=== PATIENT | female | born 1955 | race Caucasian/White ===

== ENCOUNTER 2022-03-30 14:17 | Inpatient (IN) | payer MEDICARE, OTHER, SELFPAY ==
--- NOTE | 2022-03-30 | ECG_ITS ---
Test Reason : CHEST PAIN Blood Pressure : / mmHG Vent. Rate : 118 BPM Atrial Rate : 118 BPM P-R Int : 118 ms QRS Dur : 080 ms QT Int : 326 ms P-R-T Axes : 087 077 054 degrees QTc Int : 456 ms Sinus tachycardia RSR' or QR pattern in V1 suggests right ventricular conduction delay Right axis deviation Borderline ECG No previous ECGs available Referred By: Generic ED Physician Electronically Signed By:SHARI VAZQUEZ MD
--- NOTE | ~2022-03-30 | XR_ITS ---
EXAMINATION: XR CHEST CLINICAL INFORMATION: Chest pain COMPARISON: None TECHNIQUE: Frontal view of the chest was obtained. FINDINGS: There is hyperaeration with extensive pleural and parenchymal scarring throughout. There are no prior chest radiographs for review, thus I suspect these findings are all chronic. A follow-up PA and lateral would be helpful. If symptoms continue high-resolution chest CT could be done. There is no pneumothorax. I do not see evidence for pleural effusion. Heart and pulmonary vessels are normal. No congestive change. XR/XR chest 1V IMPRESSION: Possible chronic changes. Follow-up with a PA and lateral film or high-resolution chest CT may be warranted.
[2022-03-30 14:28] VITALS: BP 160/98; PULSE 127; O2SAT 89
[2022-03-30 15:13] VITALS: BP 132/70; PULSE 102; RESP 26; TEMP 36.5; O2SAT 93; BMI 22.3
--- NOTE | 2022-03-30 16:00 | ED.SOB ---
HPI - SOB/Dyspnea General Chief Complaint: Dyspnea Stated Complaint: SOB 96% ON HOME O2 @ 3LPM FROM MD OFFICE Time Seen by Provider: 03/30/22 15:58 Source: patient Mode of arrival: ambulatory Limitations: no limitations History of Present Illness HPI Narrative: 56-year-old female history of asthma, COPD, breast cancer status post lumpectomy, lung cancer status post radiation presenting to the emergency department with shortness of breath times a week worsening. Patient reports that last week she felt like she had a cold with a dry cough, shortness of breath, malaise, fatigue subjective fevers and chills, today she comes in with significant shortness of breath, tells me she went to her PCP and was noted to be hypoxic at 89% on room air which deviates from patient's baseline, patient wears 2 L via nasal cannula at home. Patient reports she is having some substernal chest pressure without radiation. Denies fevers, chills, nausea, vomiting, abdominal pain, headache, vision changes in dizziness. Upon history taking patient speaking in short sentences, labored breathing is evident. Related Data Allergies Allergy/AdvReac Type Severity Reaction Status Date / Time Unable to Assess Allergy Unverified 03/30/22 15:59 Review of Systems Review of Systems: Constitutional : No Weight loss, No Fever, No Chills, No Fatigue, No Malaise ENT/Mouth : No sore throat, No Rhinorrhea Eyes: No Eye Pain, No Swelling, No Redness Cardiovascular : No Chest Pain, + SOB, No Dyspnea on Exertion, No Orthopnea, No Edema, No Palpitations Respiratory : + Cough, No Sputum, No Wheezing Gastrointestinal : No Nausea, No Vomiting, No Diarrhea, No Constipation, No abdominal Pain, No Hematochezia, No Melena Genitourinary : No Dysuria, No Urinary Frequency, No Hematuria, Musculoskeletal : No joint pain, No Myalgias, No Joint Swelling Skin : No Skin Lesions, No rash Neuro : No Weakness, No Numbness, No Dizziness, No Headache Psych : No Anxiety/Panic, No Depression All other systems reviewed and are negative Yes all other systems are reviewed and are negative [facility] Past Medical History Attestation statement: The following information was validated with the patient. Source: old records reviewed and nursing notes reviewed Social History Social History Advance Directives: No Advance Directives Information Provided: No Physical Exam Vital Signs: Vital Signs: Last Vital Signs Temp 97.9 F 03/30/22 17:33 Pulse 121 H 03/30/22 17:33 Resp 19 03/30/22 17:33 BP 122/80 03/30/22 17:33 Pulse Ox 98 03/30/22 17:33 O2 Del Method 03/30/22 17:33 O2 Flow Rate 6 03/30/22 17:33 BMI result Body Mass Index 22.3 Vital signs stable however patient noted to be slightly tachycardic and tachypneic. Appearance: Alert.? Oriented X3.? Moderate respiratory distress? Head: Normocephalic, atraumatic, no step-offs or deformities Eyes: Pupils equal, round and reactive to light.? CVS: Normal heart rate and rhythm.? Pulses normal.? Respiratory: Moderate respiratory distress.? Right lower lobe crackles and wheezing throughout. Abdomen: Soft and nontender.? Skin: Skin warm and dry.? Normal skin color.? Normal skin turgor.? Extremities: No lower extremity edema.? No calf ttp. 5/5 strength to bilateral upper and lower extremities Neuro: Oriented X 3.? No motor deficit.? No sensory deficit. CN 2-12 intact Course Reevaluation(s) Reevaluation #1: Patient's CBC with slight leukocytosis, chemistry with no acute electrolyte abnormalities requiring intervention, lactic acid negative. Troponin negative, EKG nonischemic unlikely ACS. D-dimer negative, unlikely PE. UA clean. Flu/COVID/RSV negative. Chest x-ray with no acute findings. Patient with slight improvement after albuterol and DuoNeb as well as Solu-Medrol and magnesium however still having diffuse wheezing, patient appears significantly better than she did upon arrival, no use of accessory muscles at this time. Currently saturating 98% on 6 L. Will give an additional DuoNeb . Plan is to admit patient to the hospital for upper respiratory infection, asthma, shortness of breath. At this time patient will be admitted to the hospital for further intervention and treatment Time: 19:13 Medications Administered Discontinued Medications Generic Name Dose Route Start Last Admin Trade Name Freq PRN Reason Stop Dose Admin Albuterol Sulfate 5 mg/ 7.5 mg 03/30/22 16:23 03/30/22 16:28 Albuterol Sulfate 2.5 mg INHALE 03/30/22 16:24 7.5 mg ONCE ONE Administration Albuterol/Ipratropium 3 ml 03/30/22 16:07 03/30/22 16:28 Albuterol/Iprat 2.5/0.5mg 3 Ml Ampul.Neb INHALE 03/30/22 16:08 3 ml ONCE ONE Administration Magnesium Sulfate 2 gm in 50 mls @ 25 mls/hr 03/30/22 16:05 03/30/22 18:25 Magnesium Sulfate/H2o IV 03/30/22 18:04 Infused ONCE ONE Infusion Methylprednisolone Sodium Succinate 125 mg 03/30/22 16:05 03/30/22 16:17 Methylprednisolone Sod Succ 125 Mg/2 Ml Vial IVPUSH 03/30/22 16:06 125 mg ONCE ONE Administration MDM - SOB/Dyspnea MDM Narrative Medical decision making narrative: 1600 58-year-old female presents with shortness of breath, started after an upper respiratory infection. Patient arrives in moderate respiratory distress, hypoxic. Upon physical examination patient noted to be speaking in short sentences with labored breathing and intercostal muscles used for breathing. Vital signs significant for tachypnea, hypoxia. Faint crackles noted to the right lower lobe as well as significant wheezing throughout. Regular rate and rhythm. Abdomen soft nontender nondistended. Neuro exam nonfocal. Concerns for possible pneumonia versus asthma exacerbation versus CHF versus PE based off patient's risks. Will obtain a cardiac workup to rule out ACS although unlikely. I do not suspect COPD exacerbation on this patient. More likely asthma. Plan at this time is labs, imaging, urine, blood cultures, lactic acid. Will administer magnesium and Solu-Medrol as well as a DuoNeb. I did call Respiratory to patient's bedside immediately upon evaluation. Medical Records Attestation: I reviewed the patient's medical records. Lab Data Attestation: I reviewed the patient's lab results. Result diagrams: 03/30/22 16:12 03/30/22 16:12 Labs: Lab Results 03/30/22 03/30/22 03/30/22 Range/Units 16:12 16:12 16:12 WBC 12.0 H (4.8-10.8) X10*3/uL RBC 5.30 (4.20-5.50) X10*6/uL Hgb 15.0 (12.0-16.0) g/dl Hct 44.9 (37.0-47.0) % MCV 84.7 (80.0-98.0) fL MCH 28.3 (27.0-33.0) pg MCHC 33.4 (31.0-35.0) g/dl RDW 12.8 (11.0-16.0) % Plt Count 301 (160-400) X10*3/uL MPV 10.8 (9.4-12.3) fL Immature Gran % (Auto) 0.3 (0.0-0.4) % Neut % (Auto) 68.4 (45-73) % Lymph % (Auto) 14.4 L (20-40) % [place] % (Auto) 7.1 (2-11) % Eos % (Auto) 8.9 H (0-4) % Baso % (Auto) 0.9 (0-2) % Lymph # (Auto) 1.7 (1.2-4.9) X10*3/uL [place] # (Auto) 0.9 (0.1-1.2) X10*3/uL Eos # (Auto) 1.1 H (0.0-0.4) X10*3/uL Baso # (Auto) 0.1 (0.0-0.2) X10*3/uL Abs Immat Gran (auto) 0.04 H (0.00-0.03) X10*3/uL Absolute Neuts (auto) 8.2 (2.0-8.3) x10*3/uL Absolute Nucleated RBC 0.000 (0.0-0.012) X10*3/uL Nucleated RBC % (auto) 0.0 (0.0-0.2) /100WBC D-Dimer High Sensitivty 213 NG/ML Sodium 142 (135-145) mmol/L Potassium 4.1 (3.3-5.1) mmol/L Chloride 105 (96-108) mmol/L Carbon Dioxide 27 (22-29) mmol/L Anion Gap 14 (12-20) BUN 7 L (9-16) mg/dL Creatinine 0.65 (0.5-1.4) mg/dL Estim Creat Clear Calc 71.5 Estimated GFR > 60 Random Glucose 108 (60-115) mg/dL Lactic Acid (0.5-2.0) mmol/L Calcium 10.1 (8.4-10.2) mg/dL Magnesium 2.1 (1.6-2.6) mg/dL Total Bilirubin 0.4 (0.0-1.0) mg/dL AST 16 (5-31) U/L ALT 11 (0-31) U/L Alkaline Phosphatase 71 (39-117) U/L Troponin I High Sens (<3.5-17.0) ng/L B-Natriuretic Peptide (<100) pg/mL Total Protein 6.7 (6.5-8.0) g/dL Albumin 4.1 (3.5-5.0) g/dL Urine Color Urine Appearance Urine pH (5.0-9.0) Ur Specific [place] (1.005-1.025) Urine Protein (Neg-Trace) mg/dL Urine Glucose (UA) (Negative) mg/dL Urine Ketones (Negative) mg/dL Urine Blood (Negative) Urine Nitrite (Negative) Ur Leukocyte Esterase (Negative) COVID-19 (KRISTINE) (Negative) COVID-19 Clin Com Influenza Type A (PCR) (Negative) Influenza Type B (PCR) (Negative) RSV RNA Qual (PCR) (Negative) SARS-CoV-2 RNA (RT-PCR) (Negative) 03/30/22 03/30/22 03/30/22 Range/Units 16:12 16:12 16:16 WBC (4.8-10.8) X10*3/uL RBC (4.20-5.50) X10*6/uL Hgb (12.0-16.0) g/dl Hct (37.0-47.0) % MCV (80.0-98.0) fL MCH (27.0-33.0) pg MCHC (31.0-35.0) g/dl RDW (11.0-16.0) % Plt Count (160-400) X10*3/uL MPV (9.4-12.3) fL Immature Gran % (Auto) (0.0-0.4) % Neut % (Auto) (45-73) % Lymph % (Auto) (20-40) % [place] % (Auto) (2-11) % Eos % (Auto) (0-4) % Baso % (Auto) (0-2) % Lymph # (Auto) (1.2-4.9) X10*3/uL [place] # (Auto) (0.1-1.2) X10*3/uL Eos # (Auto) (0.0-0.4) X10*3/uL Baso # (Auto) (0.0-0.2) X10*3/uL Abs Immat Gran (auto) (0.00-0.03) X10*3/uL Absolute Neuts (auto) (2.0-8.3) x10*3/uL Absolute Nucleated RBC (0.0-0.012) X10*3/uL Nucleated RBC % (auto) (0.0-0.2) /100WBC D-Dimer High Sensitivty NG/ML Sodium (135-145) mmol/L Potassium (3.3-5.1) mmol/L Chloride (96-108) mmol/L Carbon Dioxide (22-29) mmol/L Anion Gap (12-20) BUN (9-16) mg/dL Creatinine (0.5-1.4) mg/dL Estim Creat Clear Calc Estimated GFR Random Glucose (60-115) mg/dL Lactic Acid 1.1 (0.5-2.0) mmol/L Calcium (8.4-10.2) mg/dL Magnesium (1.6-2.6) mg/dL Total Bilirubin (0.0-1.0) mg/dL AST (5-31) U/L ALT (0-31) U/L Alkaline Phosphatase (39-117) U/L Troponin I High Sens < 3.5 (<3.5-17.0) ng/L B-Natriuretic Peptide 43 (<100) pg/mL Total Protein (6.5-8.0) g/dL Albumin (3.5-5.0) g/dL Urine Color Urine Appearance Urine pH (5.0-9.0) Ur Specific [place] (1.005-1.025) Urine Protein (Neg-Trace) mg/dL Urine Glucose (UA) (Negative) mg/dL Urine Ketones (Negative) mg/dL Urine Blood (Negative) Urine Nitrite (Negative) Ur Leukocyte Esterase (Negative) COVID-19 (KRITSINE) (Negative) COVID-19 Clin Com Influenza Type A (PCR) (Negative) Influenza Type B (PCR) (Negative) RSV RNA Qual (PCR) (Negative) SARS-CoV-2 RNA (RT-PCR) (Negative) 03/30/22 03/30/22 03/30/22 Range/Units 16:44 16:51 17:28 WBC (4.8-10.8) X10*3/uL RBC (4.20-5.50) X10*6/uL Hgb (12.0-16.0) g/dl Hct (37.0-47.0) % MCV (80.0-98.0) fL MCH (27.0-33.0) pg MCHC (31.0-35.0) g/dl RDW (11.0-16.0) % Plt Count (160-400) X10*3/uL MPV (9.4-12.3) fL Immature Gran % (Auto) (0.0-0.4) % Neut % (Auto) (45-73) % Lymph % (Auto) (20-40) % [place] % (Auto) (2-11) % Eos % (Auto) (0-4) % Baso % (Auto) (0-2) % Lymph # (Auto) (1.2-4.9) X10*3/uL [place] # (Auto) (0.1-1.2) X10*3/uL Eos # (Auto) (0.0-0.4) X10*3/uL Baso # (Auto) (0.0-0.2) X10*3/uL Abs Immat Gran (auto) (0.00-0.03) X10*3/uL Absolute Neuts (auto) (2.0-8.3) x10*3/uL Absolute Nucleated RBC (0.0-0.012) X10*3/uL Nucleated RBC % (auto) (0.0-0.2) /100WBC D-Dimer High Sensitivty NG/ML Sodium (135-145) mmol/L Potassium (3.3-5.1) mmol/L Chloride (96-108) mmol/L Carbon Dioxide (22-29) mmol/L Anion Gap (12-20) BUN (9-16) mg/dL Creatinine (0.5-1.4) mg/dL Estim Creat Clear Calc Estimated GFR Random Glucose (60-115) mg/dL Lactic Acid (0.5-2.0) mmol/L Calcium (8.4-10.2) mg/dL Magnesium (1.6-2.6) mg/dL Total Bilirubin (0.0-1.0) mg/dL AST (5-31) U/L ALT (0-31) U/L Alkaline Phosphatase (39-117) U/L Troponin I High Sens (<3.5-17.0) ng/L B-Natriuretic Peptide (<100) pg/mL Total Protein (6.5-8.0) g/dL Albumin (3.5-5.0) g/dL Urine Color Yellow Urine Appearance Clear Urine pH 6.5 (5.0-9.0) Ur Specific [place] 1.010 (1.005-1.025) Urine Protein Negative (Neg-Trace) mg/dL Urine Glucose (UA) Negative (Negative) mg/dL Urine Ketones Trace (Negative) mg/dL Urine Blood Negative (Negative) Urine Nitrite Negative (Negative) Ur Leukocyte Esterase Negative (Negative) COVID-19 (KRISTINE) Negative (Negative) COVID-19 Clin Com See Note Influenza Type A (PCR) NEGATIVE (Negative) Influenza Type B (PCR) NEGATIVE (Negative) RSV RNA Qual (PCR) NEGATIVE (Negative) SARS-CoV-2 RNA (RT-PCR) NEGATIVE (Negative) Critical Care Time Critical Care Time Critical Care Time: No Discharge Plan Discharge Clinical Impression: Asthma with exacerbation, Upper respiratory infection, Shortness of breath Patient Disposition: Admitted As Inpatient
[2022-03-30] MEDS: Magnesium Sulfate/H2O 2 GM/50 ML PIGGYBACK IV (16:17)
[2022-03-30] MEDS: methylPREDNISolone Sod Succ 125 MG/2 ML VIAL IVPUSH (16:17)
[2022-03-30 16:24] LABS: MANUAL DIFF FLAG NO
[2022-03-30 16:28] LABS: Basophils Absolute Auto 0.1 X10*3/uL (0.0-0.2); Basophils Percent Auto 0.9 % (0-2); Eosinophils Absolute Auto 1.1 X10*3/uL (0.0-0.4); Eosinophils Percent Auto 8.9 % (0-4); Hematocrit 44.9 % (37.0-47.0); Imm Gran Abs Auto 0.04 X10*3/uL (0.00-0.03); Imm Gran Pct Auto 0.3 % (0.0-0.4); Lymphocytes Absolute Auto 1.7 X10*3/uL (1.2-4.9); Lymphocytes Percent Auto 14.4 % (20-40); Mean Corpuscular HGB Conc 33.4 g/dl (31.0-35.0); Mean Corpuscular Hemoglobin 28.3 pg (27.0-33.0); Mean Corpuscular Volume 84.7 fL (80.0-98.0); Mean Platelet Volume 10.8 fL (9.4-12.3); Monocytes Absolute Auto 0.9 X10*3/uL (0.1-1.2); Monocytes Percent Auto 7.1 % (2-11); Neutrophils Absolute Auto 8.2 x10*3/uL (2.0-8.3); Neutrophils Percent Auto 68.4 % (45-73); Platelet Count 301 X10*3/uL (160-400); Red Cell Distribution Width 12.8 % (11.0-16.0)
[2022-03-30] MEDS: Albuterol/Iprat 2.5/0.5MG 3 ML AMPUL.NEB INHALE ×3 (16:28→19:41)
[2022-03-30] MEDS: Albuterol Sulfate 5 MG, Albuterol Sulfate (0.083%) 2.5 MG 7.5 MG INHALE (16:28)
[2022-03-30 16:29] VITALS: PULSE 120; RESP 18; O2SAT 89
[2022-03-30 16:33] LABS: D Dimer High Sensitivity 213 NG/ML
[2022-03-30 16:40] LABS: Lactic Acid 1.1 mmol/L (0.5-2.0)
[2022-03-30 16:48] LABS: Alanine Aminotransferase 11 U/L (0-31); Albumin Level 4.1 g/dL (3.5-5.0); Alkaline Phosphatase 71 U/L (39-117); Anion Gap 14 (12-20); Aspartate Amino Transferase 16 U/L (5-31); Bilirubin Total 0.4 mg/dL (0.0-1.0); Blood Urea Nitrogen 7 mg/dL (9-16); Calcium 10.1 mg/dL (8.4-10.2); Carbon Dioxide 27 mmol/L (22-29); Chloride 105 mmol/L (96-108); Creatinine Clr Calc Pharmacy 71.5; Estimated Glomerular Filt Rate > 60; Glucose Random 108 mg/dL (60-115); Magnesium 2.1 mg/dL (1.6-2.6); Potassium 4.1 mmol/L (3.3-5.1); Sodium 142 mmol/L (135-145); Total Protein 6.7 g/dL (6.5-8.0)
[2022-03-30 16:49] LABS: B Type Natriuretic Peptide 43 pg/mL (<100)
[2022-03-30 17:12] LABS: COVID-19 Test Negative (Negative)
[2022-03-30 17:15] LABS: Troponin-I High Sensitivity < 3.5 ng/L (<3.5-17.0)
[2022-03-30 17:33] VITALS: BP 122/80; PULSE 121; RESP 19; TEMP 36.6; O2SAT 98
[2022-03-30 17:40] LABS: Appearance Urine Clear; Color Urine Yellow; Glucose Urine UA Negative (Negative); Leukocyte Esterase Urine Negative (Negative); Nitrite Urine Negative (Negative); PH 6.5 (5.0-9.0); Urine Blood Negative (Negative); Urine Ketones Trace mg/dL (Negative); Urine Protein Negative (Neg-Trace)
[2022-03-30 17:41] LABS: Influenza A PCR NEGATIVE (Negative); Influenza B PCR NEGATIVE (Negative); Resp Syncy Virus RNA Qual PCR NEGATIVE (Negative); SARS COV2 PCR INHOUSE NEGATIVE (Negative)
[2022-03-30 19:16] VITALS: PULSE 98; RESP 16; O2SAT 98
--- NOTE | 2022-03-30 20:09 | P.HPHOSP_ITS ---
History of Present Illness Date of Service: 03/30/22 Chief Complaint: Shortness of breath This is a 66-year-old female with pertinent history of chronic hypoxemic respiratory failure secondary to asthma/COPD , essential hypertension, history of breast cancer status post mastectomy, history of lung cancer status post radiation who presents to the emergency department for evaluation of shortness of breath and wheezing. Patient states symptoms started 1 week prior to presentation. She initially had cold and a dry cough. It progressed to wheezing and dyspnea, worse with exertion. Patient used her home inhalers without relief. She went to her PCP who found the patient to be hypoxemic and asked her to go to the ER for admission. Patient uses 2 L supplemental oxygen at baseline. Does not use any assistive devices for ambulation. No history of smoking. Patient denies fever, chills, chest discomfort, palpitations, abdominal discomfort, changes in urinary or bowel habits. In the emergency department, patient was found to be hypoxemic on 2 L and was requiring 5 L supplemental oxygen. Patient continued to wheeze despite multiple breathing treatments, IV steroids and magnesium. Review of Systems Constitutional: Constitutional: Reports no additional constitutional complaints Cardiovascular: Cardiovascular: Reports no additional cardiovascular complaints and Reports dyspnea Respiratory: Respiratory: Reports cough, Reports dyspnea and Reports wheezing Gastrointestinal: Gastrointestinal: Reports no additional gastrointestinal co mplaints Genitourinary: Genitourinary: Reports no additional female genitourinary complaints Neurologic: Reports system reviewed and no additional complaints, except as documented Allergic/Immunologic: Allergic/Immunologic: Reports wheezing [facility] Medical History (Updated 03/30/22 @ 20:20 by Jose Blanchard MD) Asthma Breast cancer COPD (chronic obstructive pulmonary disease) Essential hypertension Lung cancer Functional capacity: independent ambulation Social History Advance Directives: No Advance Directives Information Provided: No Meds Allergies Allergy/AdvReac Type Severity Reaction Status Date / Time Unable to Assess Allergy Unverified 03/30/22 15:59 Active Medications: Current Medications Acetaminophen (Acetaminophen 325 Mg Tablet) 650 mg PO Q6H PRN PRN Reason: Pain, Mild (Pain Scale 1-3) Albuterol/Ipratropium (Albuterol/Iprat 2.5/0.5mg 3 Ml Ampul.Neb) 3 ml INHALE RQ4H WHILE AWAKE ERIN Last Admin: 03/30/22 19:41 Dose: 3 ml Albuterol/Ipratropium (Albuterol/Iprat 2.5/0.5mg 3 Ml Ampul.Neb) 3 ml INHALE Q4H PRN PRN Reason: wheezing Benzonatate (Benzonatate 100 Mg Capsule) 200 mg PO TID PRN PRN Reason: cough Enoxaparin Sodium (Enoxaparin Sodium 40 Mg/0.4 Ml Syringe) 40 mg SUBCUT Q24H [facility] Melatonin (Melatonin 3 Mg Tablet) 6 mg PO BEDTIME PRN PRN Reason: Insomnia Methylprednisolone Sodium Succinate (Methylprednisolone Sod Succ 40 Mg/Ml Vial) 40 mg IVPUSH BID [facility] Ondansetron HCl (Ondansetron Hcl 4 Mg/2 Ml Vial) 4 mg IVPUSH Q8H PRN PRN Reason: Nausea and Vomiting Pharmacy Consult (Consult Rx Perform Med Rec) 1 each MISCELLANE ONCE PRN PRN Reason: Consult order Sodium Chloride (0.9 % Sodium Chloride Flush 3 Ml Syringe) 3 ml IVFLUSH QSHIFT [facility] Home Medications Medication Instructions Recorded Confirmed Last Taken Type amlodipine 5 mg tablet 1 tab PO DAILY 03/30/22 Unknown History anastrozole 1 mg tablet 1 tab PO DAILY 03/30/22 Unknown History ipratropium 0.5 mg-albuterol 3 mg 3 ml inhalation QID 03/30/22 Unknown History (2.5 mg base)/3 mL nebulization soln lisinopril 20 mg tablet 1 tab PO DAILY 03/30/22 Unknown History montelukast 10 mg tablet 1 tab PO DAILY 03/30/22 Unknown History omeprazole 20 mg capsule,delayed 1 cap PO BID 03/30/22 Unknown History release tiotropium bromide 2.5 2 puff inhalation DAILY 03/30/22 Unknown History mcg/actuation mist for inhalation (Spiriva Respimat) Physical Exam Vital Signs and Narrative: Vital Signs: Last Vital Signs Temp 97.9 F 03/30/22 17:33 Pulse 98 03/30/22 19:16 Resp 16 03/30/22 19:16 BP 122/80 03/30/22 17:33 Pulse Ox 98 03/30/22 17:33 O2 Del Method 03/30/22 17:33 O2 Flow Rate 6 03/30/22 17:33 BMI result Body Mass Index 22.3 Elderly female lying in bed in no distress Neck supple, no JVD Regular rate and rhythm, S1-S2 heard Bilateral expiratory wheezes without crackles Abdomen soft nontender, no guarding, no rigidity Patient is awake, alert and oriented to self, place, time and person ; no focal motor deficit Psych: Normal mood No pedal edema Results Labs CBC and Chem 7: 03/30/22 16:12 03/30/22 16:12 Labs: Laboratory Results - last 24 hr 03/30/22 03/30/22 03/30/22 16:12 16:12 16:12 MCV 84.7 MCH 28.3 MCHC 33.4 RDW 12.8 Plt Count 301 MPV 10.8 Immature Gran % (Auto) 0.3 Neut % (Auto) 68.4 Lymph % (Auto) 14.4 L [place] % (Auto) 7.1 Eos % (Auto) 8.9 H Baso % (Auto) 0.9 Lymph # (Auto) 1.7 [place] # (Auto) 0.9 Eos # (Auto) 1.1 H Baso # (Auto) 0.1 Abs Immat Gran (auto) 0.04 H Absolute Neuts (auto) 8.2 Absolute Nucleated RBC 0.000 Nucleated RBC % (auto) 0.0 D-Dimer High Sensitivty 213 Anion Gap 14 Estim Creat Clear Calc 71.5 Estimated GFR > 60 Random Glucose 108 Lactic Acid Calcium 10.1 Magnesium 2.1 Total Bilirubin 0.4 AST 16 ALT 11 Alkaline Phosphatase 71 Troponin I High Sens B-Natriuretic Peptide Total Protein 6.7 Albumin 4.1 Urine Color Urine Appearance Urine pH Ur Specific [place] Urine Protein Urine Glucose (UA) Urine Ketones Urine Blood Urine Nitrite Ur Leukocyte Esterase COVID-19 (KRISTINE) COVID-19 Clin Com Influenza Type A (PCR) Influenza Type B (PCR) RSV RNA Qual (PCR) SARS-CoV-2 RNA (RT-PCR) 03/30/22 03/30/22 03/30/22 16:12 16:12 16:16 MCV MCH MCHC RDW Plt Count MPV Immature Gran % (Auto) Neut % (Auto) Lymph % (Auto) [place] % (Auto) Eos % (Auto) Baso % (Auto) Lymph # (Auto) [place] # (Auto) Eos # (Auto) Baso # (Auto) Abs Immat Gran (auto) Absolute Neuts (auto) Absolute Nucleated RBC Nucleated RBC % (auto) D-Dimer High Sensitivty Anion Gap Estim Creat Clear Calc Estimated GFR Random Glucose Lactic Acid 1.1 Calcium Magnesium Total Bilirubin AST ALT Alkaline Phosphatase Troponin I High Sens < 3.5 B-Natriuretic Peptide 43 Total Protein Albumin Urine Color Urine Appearance Urine pH Ur Specific [place] Urine Protein Urine Glucose (UA) Urine Ketones Urine Blood Urine Nitrite Ur Leukocyte Esterase COVID-19 (KRISTINE) COVID-19 Clin Com Influenza Type A (PCR) Influenza Type B (PCR) RSV RNA Qual (PCR) SARS-CoV-2 RNA (RT-PCR) 03/30/22 03/30/22 03/30/22 16:44 16:51 17:28 MCV MCH MCHC RDW Plt Count MPV Immature Gran % (Auto) Neut % (Auto) Lymph % (Auto) [place] % (Auto) Eos % (Auto) Baso % (Auto) Lymph # (Auto) [place] # (Auto) Eos # (Auto) Baso # (Auto) Abs Immat Gran (auto) Absolute Neuts (auto) Absolute Nucleated RBC Nucleated RBC % (auto) D-Dimer High Sensitivty Anion Gap Estim Creat Clear Calc Estimated GFR Random Glucose Lactic Acid Calcium Magnesium Total Bilirubin AST ALT Alkaline Phosphatase Troponin I High Sens B-Natriuretic Peptide Total Protein Albumin Urine Color Yellow Urine Appearance Clear Urine pH 6.5 Ur Specific [place] 1.010 Urine Protein Negative Urine Glucose (UA) Negative Urine Ketones Trace Urine Blood Negative Urine Nitrite Negative Ur Leukocyte Esterase Negative COVID-19 (KRISTINE) Negative COVID-19 Clin Com See Note Influenza Type A (PCR) NEGATIVE Influenza Type B (PCR) NEGATIVE RSV RNA Qual (PCR) NEGATIVE SARS-CoV-2 RNA (RT-PCR) NEGATIVE Imaging Radiologist's Impressions: Impressions Chest X-Ray 03/30/22 16:41 IMPRESSION: Possible chronic changes. Follow-up with a PA and lateral film or high-resolution chest CT may be warranted. Assessment and Plan (1) Acute and chronic respiratory failure with hypoxia: Status: Acute (2) Asthma with exacerbation: Status: Acute (3) Upper respiratory infection: Status: Acute (4) Essential hypertension: Status: Acute Plan This is a 66-year-old female with pertinent history of chronic hypoxemic respiratory failure secondary to asthma/COPD , essential hypertension, history of breast cancer status post mastectomy, history of lung cancer status post radiation who presents to the emergency department for evaluation of shortness of breath and wheezing. #. Acute on chronic hypoxemic respiratory failure #. Acute exacerbation of obstructive lung disease -likely due to viral bronchitis. Has asthma/COPD overlap syndrome. Currently on 5L, maintain oxygen saturation greater than 90% and wean as tolerated. Requires 2 L supplemental oxygen at baseline. Received solumedrol and magnesium sulphate in the ER. Continue systemic steroids, scheduled and prn duonebs. Continue home inhalers. No concern for bacterial superinfection, defer Abx. Consider CT chest if symptoms continue. #Leukocytosis -likely reactive. No concern for sepsis #. Essential HTN -continue home meds #. GERD -on omeprazole Med rec pending DVT prophylaxis: Lovenox 40mg daily Diet: Cardiac Diet Full code Admit as inpatient and will require two night minimum hospital stay for supplemental oxygen and IV steroids. Quality Stroke Does the patient have a stroke diagnosis?: No VTE Prior VTE?: No VTE Risk Level:: Medical - moderate - high VTE Device Contraindication: Treatment Not Indicated VTE Drug Contraindication: N/A - Med Ordered
--- NOTE | 2022-03-30 21:26 | PHA.MEDREC ---
Pharmacy Consult ? Medication Reconciliation Pharmacy has completed the medication reconciliation.
[2022-03-30 21:43] VITALS: BP 129/71; PULSE 107; RESP 17; TEMP 36.5; O2SAT 96
[2022-03-30] MEDS: Enoxaparin Sodium 40 MG/0.4 ML SYRINGE SUBCUT (21:57)
[2022-03-30] MEDS: Benzonatate 100 MG CAPSULE 200 MG PO (21:58)
--- NOTE | 2022-03-30 23:01 | MHC.CM.PN ---
Addendum entered by Chelle Gay 03/30/22 23:03: HCP/daughter Bruce Lua ([phone]). Original Note: IMM 03/30. Lives alone. Uses oxygen @2L, otherwise no DME. No services. UNvaccinated. HCP not on file. Copy requested. States copy at Dr. Culp's office. D/C plan: Home without services. Family to transport. CM to follow for d/c needs.
[2022-03-30] MEDS: 0.9 % Sodium Chloride Flush 3 ML SYRINGE IVFLUSH (23:52)
[2022-03-31] VITALS (11 sets, daily range): BP systolic 107–131; BP diastolic 60–84; PULSE 77–104; RESP 13–19; TEMP 36.3–37.1; O2SAT 91–98; BMI 22.3
[2022-03-31 04:21] LABS: MANUAL DIFF FLAG NO
[2022-03-31 04:22] LABS: Basophils Percent Auto 0.2 % (0-2); Hematocrit 42.9 % (37.0-47.0); Hemoglobin 14.3 g/dl (12.0-16.0); Imm Gran Abs Auto 0.03 X10*3/uL (0.00-0.03); Imm Gran Pct Auto 0.5 % (0.0-0.4); Lymphocytes Absolute Auto 0.9 X10*3/uL (1.2-4.9); Lymphocytes Percent Auto 14.8 % (20-40); Mean Corpuscular HGB Conc 33.3 g/dl (31.0-35.0); Mean Corpuscular Hemoglobin 28.1 pg (27.0-33.0); Mean Corpuscular Volume 84.4 fL (80.0-98.0); Mean Platelet Volume 10.4 fL (9.4-12.3); Monocytes Absolute Auto 0.2 X10*3/uL (0.1-1.2); Monocytes Percent Auto 2.5 % (2-11); Neutrophils Absolute Auto 5.2 x10*3/uL (2.0-8.3); Platelet Count 280 X10*3/uL (160-400); Red Blood Count 5.08 X10*6/uL (4.20-5.50); Red Cell Distribution Width 12.6 % (11.0-16.0); White Blood Count 6.4 X10*3/uL (4.8-10.8)
[2022-03-31 04:38] LABS: Anion Gap 14 (12-20); Blood Urea Nitrogen 11 mg/dL (9-16); Calcium 9.3 mg/dL (8.4-10.2); Carbon Dioxide 26 mmol/L (22-29); Chloride 105 mmol/L (96-108); Creatinine Clr Calc Pharmacy 73.8; Estimated Glomerular Filt Rate > 60; Glucose Random 140 mg/dL (60-115); Potassium 4.6 mmol/L (3.3-5.1); Sodium 140 mmol/L (135-145)
[2022-03-31] MEDS: Albuterol/Iprat 2.5/0.5MG 3 ML AMPUL.NEB INHALE ×4 (07:53→19:42)
[2022-03-31] MEDS: Omeprazole 20 MG CAPSULE.DR PO ×2 (09:05→21:08)
[2022-03-31] MEDS: lisinopriL 20 MG TABLET PO (09:05)
[2022-03-31] MEDS: amLODIPine Besylate 5 MG TABLET PO (09:05)
[2022-03-31] MEDS: Cholecalciferol (Vitamin D3) 25 MCG TABLET 50 MCG PO (09:05)
[2022-03-31] MEDS: methylPREDNISolone Sod Succ 40 MG/ML VIAL IVPUSH ×2 (09:06→21:08)
[2022-03-31] MEDS: 0.9 % Sodium Chloride Flush 3 ML SYRINGE IVFLUSH ×2 (09:06→21:09)
[2022-03-31] MEDS: Benzonatate 100 MG CAPSULE 200 MG PO ×2 (09:07→21:09)
[2022-03-31] MEDS: Anastrozole 1 MG TABLET PO (10:39)
--- NOTE | 2022-03-31 11:18 | PC.NURSE ---
Patient alert and oriented. VSS, patient currently on 2 L via NC. Per patient SOB improved since yesterday. Still having productive cough, given Tessalon per EMAR. Lung sounds diminished, expiratory wheezing throughout. Ambulating to bathroom with supervision. All needs met at this time.
--- NOTE | 2022-03-31 14:51 | P.PNIM_ITS ---
Subjective Subjective Date of Service: 03/31/22 Interval History: seen and examined this morning Follow-up for COPD exacerbation Patient reports 1 week of worsening shortness of breath, dry cough still shortness of breath and. Denies body aches, fever, chills Review of Systems Review of Systems: Yes all other systems are reviewed and are negative Constitutional Constitutional: Denies chills and Denies fever(s) ENT Ears, Nose, Mouth, and Throat: Denies dizziness Cardiovascular Cardiovascular: Denies chest pain, Denies palpitations and Reports dyspnea Respiratory Respiratory: Reports cough and Reports dyspnea Gastrointestinal Gastrointestinal: Denies abdominal pain, Denies nausea and Denies vomiting Neurologic Neurologic: Denies dizziness Endocrine Endocrine: Denies palpitations Physical Exam Vital Signs: Vital Signs: Last Vital Signs Temp 98.1 F 03/31/22 07:20 Pulse 95 03/31/22 11:41 Resp 18 03/31/22 11:41 BP 130/65 03/31/22 07:20 Pulse Ox 93 03/31/22 07:20 O2 Del Method 03/31/22 07:20 O2 Flow Rate 2 03/31/22 07:20 BMI result Body Mass Index 22.3 Const: General: alert and awake Nutritional Appearance: average body habitus Orientation/consciousness: patient oriented x3 Resp: Other: diffuse expiratory wheezing Effort & Inspection: normal respiratory effort and able to speak in complete sentences Cardio: Rate: regular rate Heart sounds: S1 normal heart sound present and S2 normal heart sound present GI: Inspection: No distended Palpation (GI): Soft to palpation and nontender Neuro: General: patient oriented x3 and CN's II-XI intact bilaterally Extrem: General: Yes no pedal edema Psych: Affect: normal affect Objective Data Active Medications Acetaminophen (Acetaminophen 325 Mg Tablet) 650 mg PO Q6H PRN PRN Reason: Pain, Mild (Pain Scale 1-3) Albuterol Sulfate (Albuterol Sulfate 90 Mcg 8 Gm Inhaler) 2 puff INHALE Q4H PRN PRN Reason: Wheezing Albuterol/Ipratropium (Albuterol/Iprat 2.5/0.5mg 3 Ml Ampul.Neb) 3 ml INHALE RQ4H WHILE AWAKE ERIN Last Admin: 03/31/22 11:41 Dose: 3 ml Documented By: SACHIN Albuterol/Ipratropium (Albuterol/Iprat 2.5/0.5mg 3 Ml Ampul.Neb) 3 ml INHALE Q4H PRN PRN Reason: wheezing Amlodipine Besylate (Amlodipine Besylate 5 Mg Tablet) 5 mg PO DAILY [facility]; Protocol Last Admin: 03/31/22 09:05 Dose: 5 mg Documented By: DAYANNA Anastrozole (Anastrozole 1 Mg Tablet) 1 mg PO DAILY [facility] Last Admin: 03/31/22 10:39 Dose: 1 mg Documented By: DAYANNA Benzonatate (Benzonatate 100 Mg Capsule) 200 mg PO TID PRN PRN Reason: cough Last Admin: 03/31/22 09:07 Dose: 200 mg Documented By: DAYANNA Enoxaparin Sodium (Enoxaparin Sodium 40 Mg/0.4 Ml Syringe) 40 mg SUBCUT Q24H [facility] Last Admin: 03/30/22 21:57 Dose: 40 mg Documented By: N-LITTA Fluticasone/Vilanterol (Fluticasone/Vilanterol 100/25 Blst.W.Dev) 1 puff INHALE DAILY [facility] Last Admin: 03/31/22 07:56 Dose: Not Given Documented By: SACHIN Non-Admin Reason: Med Not Available Lisinopril (Lisinopril 20 Mg Tablet) 20 mg PO DAILY [facility]; Protocol Last Admin: 03/31/22 09:05 Dose: 20 mg Documented By: DAYANNA Melatonin (Melatonin 3 Mg Tablet) 6 mg PO BEDTIME PRN PRN Reason: Insomnia Methylprednisolone Sodium Succinate (Methylprednisolone Sod Succ 40 Mg/Ml Vial) 40 mg IVPUSH BID [facility] Last Admin: 03/31/22 09:06 Dose: 40 mg Documented By: DAYANNA Montelukast Sodium (Montelukast Sodium 10 Mg Tablet) 10 mg PO BEDTIME [facility] Omeprazole (Omeprazole 20 Mg Capsule.Dr) 20 mg PO BID [facility] Last Admin: 03/31/22 09:05 Dose: 20 mg Documented By: DAYANNA Ondansetron HCl (Ondansetron Hcl 4 Mg/2 Ml Vial) 4 mg IVPUSH Q8H PRN PRN Reason: Nausea and Vomiting Pharmacy Consult (Consult Rx Perform Med Rec) 1 each MISCELLANE ONCE PRN PRN Reason: Consult order Sodium Chloride (0.9 % Sodium Chloride Flush 3 Ml Syringe) 3 ml IVFLUSH QSHIFT [facility] Last Admin: 03/31/22 11:41 Dose: Not Given Documented By: JOSEE Non-Admin Reason: IV Running Tiotropium [place] (Tiotropium [place] 18 Mcg Cap.W.Dev) 1 puff INHALE DAILY [facility] Last Admin: 03/31/22 07:56 Dose: Not Given Documented By: ASCHIN Non-Admin Reason: Med Not Available Vitamin D (Cholecalciferol (Vitamin D3) 25 Mcg Tablet) 50 mcg PO DAILY [facility] Last Admin: 03/31/22 09:05 Dose: 50 mcg Documented By: DAYANNA Labs CBC & Chem 7: 03/31/22 04:09 03/31/22 04:09 Labs: Laboratory Results - last 24 hr 03/30/22 03/30/22 03/30/22 16:12 16:12 16:12 MCV 84.7 MCH 28.3 MCHC 33.4 RDW 12.8 Plt Count 301 MPV 10.8 Immature Gran % (Auto) 0.3 Neut % (Auto) 68.4 Lymph % (Auto) 14.4 L [place] % (Auto) 7.1 Eos % (Auto) 8.9 H Baso % (Auto) 0.9 Lymph # (Auto) 1.7 [place] # (Auto) 0.9 Eos # (Auto) 1.1 H Baso # (Auto) 0.1 Abs Immat Gran (auto) 0.04 H Absolute Neuts (auto) 8.2 Absolute Nucleated RBC 0.000 Nucleated RBC % (auto) 0.0 D-Dimer High Sensitivty 213 Anion Gap 14 Estim Creat Clear Calc 71.5 Estimated GFR > 60 Random Glucose 108 Lactic Acid Calcium 10.1 Magnesium 2.1 Total Bilirubin 0.4 AST 16 ALT 11 Alkaline Phosphatase 71 Troponin I High Sens B-Natriuretic Peptide Total Protein 6.7 Albumin 4.1 Urine Color Urine Appearance Urine pH Ur Specific [place] Urine Protein Urine Glucose (UA) Urine Ketones Urine Blood Urine Nitrite Ur Leukocyte Esterase COVID-19 (KRISTINE) COVID-19 Clin Com Influenza Type A (PCR) Influenza Type B (PCR) RSV RNA Qual (PCR) SARS-CoV-2 RNA (RT-PCR) 03/30/22 03/30/22 03/30/22 16:12 16:12 16:16 MCV MCH MCHC RDW Plt Count MPV Immature Gran % (Auto) Neut % (Auto) Lymph % (Auto) [place] % (Auto) Eos % (Auto) Baso % (Auto) Lymph # (Auto) [place] # (Auto) Eos # (Auto) Baso # (Auto) Abs Immat Gran (auto) Absolute Neuts (auto) Absolute Nucleated RBC Nucleated RBC % (auto) D-Dimer High Sensitivty Anion Gap Estim Creat Clear Calc Estimated GFR Random Glucose Lactic Acid 1.1 Calcium Magnesium Total Bilirubin AST ALT Alkaline Phosphatase Troponin I High Sens < 3.5 B-Natriuretic Peptide 43 Total Protein Albumin Urine Color Urine Appearance Urine pH Ur Specific [place] Urine Protein Urine Glucose (UA) Urine Ketones Urine Blood Urine Nitrite Ur Leukocyte Esterase COVID-19 (KRISTINE) COVID-19 Clin Com Influenza Type A (PCR) Influenza Type B (PCR) RSV RNA Qual (PCR) SARS-CoV-2 RNA (RT-PCR) 03/30/22 03/30/22 03/30/22 16:44 16:51 17:28 MCV MCH MCHC RDW Plt Count MPV Immature Gran % (Auto) Neut % (Auto) Lymph % (Auto) [place] % (Auto) Eos % (Auto) Baso % (Auto) Lymph # (Auto) [place] # (Auto) Eos # (Auto) Baso # (Auto) Abs Immat Gran (auto) Absolute Neuts (auto) Absolute Nucleated RBC Nucleated RBC % (auto) D-Dimer High Sensitivty Anion Gap Estim Creat Clear Calc Estimated GFR Random Glucose Lactic Acid Calcium Magnesium Total Bilirubin AST ALT Alkaline Phosphatase Troponin I High Sens B-Natriuretic Peptide Total Protein Albumin Urine Color Yellow Urine Appearance Clear Urine pH 6.5 Ur Specific [place] 1.010 Urine Protein Negative Urine Glucose (UA) Negative Urine Ketones Trace Urine Blood Negative Urine Nitrite Negative Ur Leukocyte Esterase Negative COVID-19 (KRISTINE) Negative COVID-19 Clin Com See Note Influenza Type A (PCR) NEGATIVE Influenza Type B (PCR) NEGATIVE RSV RNA Qual (PCR) NEGATIVE SARS-CoV-2 RNA (RT-PCR) NEGATIVE 03/31/22 03/31/22 04:09 04:09 MCV 84.4 MCH 28.1 MCHC 33.3 RDW 12.6 Plt Count 280 MPV 10.4 Immature Gran % (Auto) 0.5 H Neut % (Auto) 82.0 H Lymph % (Auto) 14.8 L [place] % (Auto) 2.5 Eos % (Auto) 0.0 Baso % (Auto) 0.2 Lymph # (Auto) 0.9 L [place] # (Auto) 0.2 Eos # (Auto) 0.0 Baso # (Auto) 0.0 Abs Immat Gran (auto) 0.03 Absolute Neuts (auto) 5.2 Absolute Nucleated RBC 0.000 Nucleated RBC % (auto) 0.0 D-Dimer High Sensitivty Anion Gap 14 Estim Creat Clear Calc 73.8 Estimated GFR > 60 Random Glucose 140 H Lactic Acid Calcium 9.3 D Magnesium Total Bilirubin AST ALT Alkaline Phosphatase Troponin I High Sens B-Natriuretic Peptide Total Protein Albumin Urine Color Urine Appearance Urine pH Ur Specific [place] Urine Protein Urine Glucose (UA) Urine Ketones Urine Blood Urine Nitrite Ur Leukocyte Esterase COVID-19 (KRISTINE) COVID-19 Clin Com Influenza Type A (PCR) Influenza Type B (PCR) RSV RNA Qual (PCR) SARS-CoV-2 RNA (RT-PCR) Assessment and Plan (1) Acute and chronic respiratory failure with hypoxia: Status: Acute Plan This is a 66-year-old female with pertinent history of chronic hypoxemic respiratory failure secondary to asthma/COPD , essential hypertension, history of breast cancer status post mastectomy, history of lung cancer status post radiation who presents to the emergency department for evaluation of shortness of breath and wheezing. Acute on chronic hypoxemic respiratory failure Acute exacerbation of obstructive lung disease likely due to viral bronchitis. covid/flu/rsv negative Requires 2 L supplemental oxygen at baseline, wean o2 as tolerated Continue systemic steroids, scheduled and prn duonebs Leukocytosis likely reactive. No concern for sepsis Essential HTN BP controlled continue amlodipine, lisinopril GERD on omeprazole history of breast cancer Continue anastrozole DVT prophylaxis: Lovenox 40mg daily Diet: Cardiac Diet Full code attending - dr. olivas patient requires ongoing inpatient hospitalization for scheduled breathing treatments, IV steroids, close monitoring of oxygen saturation Quality Stroke Does the patient have a stroke diagnosis?: No VTE Prior VTE?: No VTE Risk Level:: Medical - moderate - high VTE Device Contraindication: Treatment Not Indicated VTE Drug Contraindication: N/A - Med Ordered
[2022-03-31] MEDS: Enoxaparin Sodium 40 MG/0.4 ML SYRINGE SUBCUT (21:08)
[2022-03-31] MEDS: Montelukast Sodium 10 MG TABLET PO (21:08)
[2022-03-31] MEDS: Melatonin 3 MG TABLET 6 MG PO (21:09)
[2022-04-01] VITALS (10 sets, daily range): BP systolic 102–135; BP diastolic 59–73; PULSE 81–99; RESP 16–20; TEMP 36.4–37.1; O2SAT 92–98
[2022-04-01] MEDS: Albuterol/Iprat 2.5/0.5MG 3 ML AMPUL.NEB INHALE ×4 (07:56→19:28)
[2022-04-01] MEDS: lisinopriL 20 MG TABLET PO (08:22)
[2022-04-01] MEDS: Omeprazole 20 MG CAPSULE.DR PO ×2 (08:22→20:38)
[2022-04-01] MEDS: methylPREDNISolone Sod Succ 40 MG/ML VIAL IVPUSH ×2 (08:22→20:38)
[2022-04-01] MEDS: Cholecalciferol (Vitamin D3) 25 MCG TABLET 50 MCG PO (08:22)
[2022-04-01] MEDS: amLODIPine Besylate 5 MG TABLET PO (08:22)
[2022-04-01] MEDS: Anastrozole 1 MG TABLET PO (08:22)
[2022-04-01] MEDS: 0.9 % Sodium Chloride Flush 3 ML SYRINGE IVFLUSH ×3 (08:23→20:38)
--- NOTE | 2022-04-01 12:21 | P.PNIM_ITS ---
Subjective Subjective Date of Service: 04/01/22 Interval History: seen and examined this morning follow up for copd exacerbation breathing improving, still with shortness of breath on exertion, dry cough Review of Systems Review of Systems: Yes all other systems are reviewed and are negative Constitutional Constitutional: Denies chills and Denies fever(s) Cardiovascular Cardiovascular: Denies chest pain, Denies palpitations and Reports dyspnea on exertion Respiratory Respiratory: Reports cough and Reports dyspnea on exertion Gastrointestinal Gastrointestinal: Denies abdominal pain, Denies nausea and Denies vomiting Endocrine Endocrine: Denies palpitations Physical Exam Vital Signs: Vital Signs: Last Vital Signs Temp 98.7 F 04/01/22 11:14 Pulse 81 04/01/22 11:31 Resp 16 04/01/22 11:31 BP 113/62 04/01/22 11:14 Pulse Ox 94 04/01/22 11:14 O2 Del Method 04/01/22 11:14 O2 Flow Rate 2 04/01/22 11:14 BMI result Body Mass Index 22.3 Const: General: alert and awake Nutritional Appearance: average body habitus Orientation/consciousness: patient oriented x3 Resp: Other: diffuse expiratory wheezing Effort & Inspection: normal respiratory effort and able to speak in complete sentences Cardio: Rate: regular rate Heart sounds: S1 normal heart sound present and S2 normal heart sound present GI: Inspection: No distended Palpation (GI): Soft to palpation and nontend er Neuro: General: patient oriented x3 and CN's II-XI intact bilaterally Extrem: General: Yes no pedal edema Psych: Affect: normal affect Objective Data Active Medications Acetaminophen (Acetaminophen 325 Mg Tablet) 650 mg PO Q6H PRN PRN Reason: Pain, Mild (Pain Scale 1-3) Albuterol Sulfate (Albuterol Sulfate 90 Mcg 8 Gm Inhaler) 2 puff INHALE Q4H PRN PRN Reason: Wheezing Albuterol/Ipratropium (Albuterol/Iprat 2.5/0.5mg 3 Ml Ampul.Neb) 3 ml INHALE RQ4H WHILE AWAKE [facility] Last Admin: 04/01/22 11:31 Dose: 3 ml Documented By: DESTINY Albuterol/Ipratropium (Albuterol/Iprat 2.5/0.5mg 3 Ml Ampul.Neb) 3 ml INHALE Q4H PRN PRN Reason: wheezing Amlodipine Besylate (Amlodipine Besylate 5 Mg Tablet) 5 mg PO DAILY [facility]; Pr otocol Last Admin: 04/01/22 08:22 Dose: 5 mg Documented By: ANGIE Anastrozole (Anastrozole 1 Mg Tablet) 1 mg PO DAILY [facility] Last Admin: 04/01/22 08:22 Dose: 1 mg Documented By: ANGIE Benzonatate (Benzonatate 100 Mg Capsule) 200 mg PO TID PRN PRN Reason: cough Last Admin: 03/31/22 21:09 Dose: 200 mg Documented By: LIANA Enoxaparin Sodium (Enoxaparin Sodium 40 Mg/0.4 Ml Syringe) 40 mg SUBCUT Q24H [facility] Last Admin: 03/31/22 21:08 Dose: 40 mg Documented By: LIANA Fluticasone/Vilanterol (Fluticasone/Vilanterol 100/25 Blst.W.Dev) 1 puff INHALE RDAILY [facility] Last Admin: 04/01/22 09:50 Dose: Not Given Documented By: ANGIE Non-Admin Reason: already given Lisinopril (Lisinopril 20 Mg Tablet) 20 mg PO DAILY [facility]; Protocol Last Admin: 04/01/22 08:22 Dose: 20 mg Documented By: ANGIE Melatonin (Melatonin 3 Mg Tablet) 6 mg PO BEDTIME PRN PRN Reason: Insomnia Last Admin: 03/31/22 21:09 Dose: 6 mg Documented By: LIANA Methylprednisolone Sodium Succinate (Methylprednisolone Sod Succ 40 Mg/Ml Vial) 40 mg IVPUSH BID [facility] Last Admin: 04/01/22 08:22 Dose: 40 mg Documented By: ANGIE Montelukast Sodium (Montelukast Sodium 10 Mg Tablet) 10 mg PO BEDTIME [facility] Last Admin: 03/31/22 21:08 Dose: 10 mg Documented By: LIANA Omeprazole (Omeprazole 20 Mg Capsule.Dr) 20 mg PO BID [facility] Last Admin: 04/01/22 08:22 Dose: 20 mg Documented By: ANGIE Ondansetron HCl (Ondansetron Hcl 4 Mg/2 Ml Vial) 4 mg IVPUSH Q8H PRN PRN Reason: Nausea and Vomiting Pharmacy Consult (Consult Rx Perform Med Rec) 1 each MISCELLANE ONCE PRN PRN Reason: Consult order Sodium Chloride (0.9 % Sodium Chloride Flush 3 Ml Syringe) 3 ml IVFLUSH QSHIFT [facility] Last Admin: 04/01/22 08:23 Dose: 3 ml Documented By: ANGIE Tiotropium [place] (Tiotropium [place] 18 Mcg Cap.W.Dev) 1 puff INHALE DAILY [facility] Last Admin: 04/01/22 07:56 Dose: 1 puff Documented By: DESTINY Vitamin D (Cholecalciferol (Vitamin D3) 25 Mcg Tablet) 50 mcg PO DAILY [facility] Last Admin: 04/01/22 08:22 Dose: 50 mcg Documented By: ANGIE Labs CBC & Chem 7: 03/31/22 04:09 03/31/22 04:09 Microbiology Microbiology Results: Microbiology 03/30/22 16:15 Blood Culture - Preliminary Blood - Venous No growth after 24 hours. 03/30/22 16:16 Blood Culture - Preliminary Blood - Venous No growth after 24 hours. Assessment and Plan (1) COPD (chronic obstructive pulmonary disease): Status: Acute (2) Acute and chronic respiratory failure with hypoxia: Status: Acute Plan This is a 66-year-old female with pertinent history of chronic hypoxemic respiratory failure secondary to asthma/COPD , essential hypertension, history of breast cancer status post mastectomy, history of lung cancer status post radiation who presents to the emergency department for evaluation of shortness of breath and wheezing. Acute on chronic hypoxemic respiratory failure secondary to Acute COPD exacerbation likely due to viral bronchitis. covid/flu/rsv negative Requires 2 L supplemental oxygen at baseline, back down to baseline o2 still with LOPEZ, dry cough Continue systemic steroids, scheduled and prn duonebs Leukocytosis resolved Essential HTN BP controlled continue amlodipine, lisinopril GERD on omeprazole history of breast cancer Continue anastrozole DVT prophylaxis: Lovenox 40mg daily Diet: Cardiac Diet attending - dr. olivas patient requires ongoing inpatient hospitalization for scheduled breathing treatments, IV steroids, close monitoring of oxygen saturation Quality Stroke Does the patient have a stroke diagnosis?: No VTE Prior VTE?: No VTE Risk Level:: Medical - moderate - high VTE Device Contraindication: Treatment Not Indicated VTE Drug Contraindication: N/A - Med Ordered
[2022-04-01] MEDS: Enoxaparin Sodium 40 MG/0.4 ML SYRINGE SUBCUT (20:38)
[2022-04-01] MEDS: Montelukast Sodium 10 MG TABLET PO (20:38)
[2022-04-02] VITALS (11 sets, daily range): BP systolic 116–152; BP diastolic 65–85; PULSE 74–116; RESP 16–19; TEMP 35.4–37.2; O2SAT 92–96
[2022-04-02] MEDS: Fluticasone/Vilanterol 100/25 BLST.W.DEV 1 PUFF INHALE (07:44)
[2022-04-02] MEDS: Albuterol/Iprat 2.5/0.5MG 3 ML AMPUL.NEB INHALE ×4 (07:44→18:57)
[2022-04-02] MEDS: Cholecalciferol (Vitamin D3) 25 MCG TABLET 50 MCG PO (11:27)
[2022-04-02] MEDS: amLODIPine Besylate 5 MG TABLET PO (11:27)
[2022-04-02] MEDS: lisinopriL 20 MG TABLET PO (11:27)
[2022-04-02] MEDS: Omeprazole 20 MG CAPSULE.DR PO ×2 (11:28→20:29)
[2022-04-02] MEDS: 0.9 % Sodium Chloride Flush 3 ML SYRINGE IVFLUSH ×3 (11:29→20:29)
[2022-04-02] MEDS: methylPREDNISolone Sod Succ 40 MG/ML VIAL IVPUSH ×2 (11:29→20:29)
[2022-04-02] MEDS: Anastrozole 1 MG TABLET PO (11:29)
--- NOTE | 2022-04-02 12:20 | HO.PM.IMPN ---
Subjective Subjective Date of Service: 04/02/22 Interval History: Pt is very dyspneic on minimal movement and exertion. She has wheezing and reports that at baseline shes usually ambulatory at home with no SOB. she denies any chest pain, no palpitations, no abd pain, n/v, no constipation or diarrhea. no urinary symptoms. Review of Systems Review of Systems: Yes all other systems are reviewed and are negative Physical Exam Vital Signs: Vital Signs: Last Vital Signs Temp 98.9 F 04/02/22 11:36 Pulse 80 04/02/22 11:36 Resp 16 04/02/22 11:36 BP 119/69 04/02/22 11:36 Pulse Ox 93 04/02/22 11:36 O2 Del Method 04/02/22 11:36 O2 Flow Rate 2 04/02/22 11:36 BMI result Body Mass Index 22.3 Resp: Other: Dyspnea throughout the lung tachypneic Cardio: Other: normal rate and rhythm GI: Other: abd is soft, non-tender Extrem: Other: no lower extremity edema Objective Data Active Medications Acetaminophen (Acetaminophen 325 Mg Tablet) 650 mg PO Q6H PRN PRN Reason: Pain, Mild (Pain Scale 1-3) Albuterol Sulfate (Albuterol Sulfate 90 Mcg 8 Gm Inhaler) 2 puff INHALE Q4H PRN PRN Reason: Wheezing Albuterol/Ipratropium (Albuterol/Iprat 2.5/0.5mg 3 Ml Ampul.Neb) 3 ml INHALE RQ4H WHILE AWAKE [facility] Last Admin: 04/02/22 10:58 Dose: 3 ml Documented By: DESTINY Albuterol/Ipratropium (Albuterol/Iprat 2.5/0.5mg 3 Ml Ampul.Neb) 3 ml INHALE Q4H PRN PRN Reason: wheezing Amlodipine Besylate (Amlodipine Besylate 5 Mg Tablet) 5 mg PO DAILY [facility]; Protocol Last Admin: 04/02/22 11:27 Dose: 5 mg Documented By: DIONICIO Anastrozole (Anastrozole 1 Mg Tablet) 1 mg PO DAILY [facility] Last Admin: 04/02/22 11:29 Dose: 1 mg Documented By: DIONICIO Benzonatate (Benzonatate 100 Mg Capsule) 200 mg PO TID PRN PRN Reason: cough Last Admin: 03/31/22 21:09 Dose: 200 mg Documented By: LIANA Enoxaparin Sodium (Enoxaparin Sodium 40 Mg/0.4 Ml Syringe) 40 mg SUBCUT Q24H [facility] Last Admin: 04/01/22 20:38 Dose: 40 mg Documented By: ANNAMARIA Fluticasone/Vilanterol (Fluticasone/Vilanterol 100/25 Blst.W.Dev) 1 puff INHALE RDAILY [facility] Last Admin: 04/02/22 07:44 Dose: 1 puff Documented By: DESTINY Lisinopril (Lisinopril 20 Mg Tablet) 20 mg PO DAILY [facility]; Protocol Last Admin: 04/02/22 11:27 Dose: 20 mg Documented By: DIONICIO Melatonin (Melatonin 3 Mg Tablet) 6 mg PO BEDTIME PRN PRN Reason: Insomnia Last Admin: 03/31/22 21:09 Dose: 6 mg Documented By: LIANA Methylprednisolone Sodium Succinate (Methylprednisolone Sod Succ 40 Mg/Ml Vial) 40 mg IVPUSH BID [facility] Last Admin: 04/02/22 11:29 Dose: 40 mg Documented By: DIONICIO Montelukast Sodium (Montelukast Sodium 10 Mg Tablet) 10 mg PO BEDTIME [facility] Last Admin: 04/01/22 20:38 Dose: 10 mg Documented By: ANNAMARIA Omeprazole (Omeprazole 20 Mg Capsule.Dr) 20 mg PO BID [facility] Last Admin: 04/02/22 11:28 Dose: 20 mg Documented By: DIONICIO Ondansetron HCl (Ondansetron Hcl 4 Mg/2 Ml Vial) 4 mg IVPUSH Q8H PRN PRN Reason: Nausea and Vomiting Pharmacy Consult (Consult Rx Perform Med Rec) 1 each MISCELLANE ONCE PRN PRN Reason: Consult order Sodium Chloride (0.9 % Sodium Chloride Flush 3 Ml Syringe) 3 ml IVFLUSH QSHIFT [facility] Last Admin: 04/02/22 11:29 Dose: 3 ml Documented By: DIONICIO Tiotropium [place] (Tiotropium [place] 18 Mcg Cap.W.Dev) 1 puff INHALE DAILY [facility] Last Admin: 04/02/22 07:44 Dose: 1 puff Documented By: DESTINY Vitamin D (Cholecalciferol (Vitamin D3) 25 Mcg Tablet) 50 mcg PO DAILY [facility] Last Admin: 04/02/22 11:27 Dose: 50 mcg Documented By: DIONICIO Labs CBC & Chem 7: 03/31/22 04:09 03/31/22 04:09 Microbiology Microbiology Results: Microbiology 03/30/22 16:15 Blood Culture - Preliminary Blood - Venous No growth after 48 hours. 03/30/22 16:16 Blood Culture - Preliminary Blood - Venous No growth after 48 hours. Assessment and Plan (1) Acute and chronic respiratory failure with hypoxia: Status: Acute (2) Acute exacerbation of COPD with asthma: Status: Acute Plan This is a 66-year-old female with pertinent history of chronic hypoxemic respiratory failure secondary to asthma/COPD , essential hypertension, history of breast cancer status post mastectomy, history of lung cancer status post radiation who presents to the emergency department for evaluation of shortness of breath and wheezing. #Acute on chronic hypoxemic respiratory failure secondary to Acute COPD exacerbation - likely due to viral bronchitis. covid/flu/rsv negative - Back to baseline O2 requirement which is 2L - continues to be significantly dyspneic on minimal exertion - not at baseline - Continue systemic steroids, scheduled and prn duonebs #Leukocytosis - resolved #Essential HTN - BP stable - continue home meds #GERD - Continue omeprazole # history of breast cancer Continue anastrozole DVT prophylaxis: Lovenox 40mg daily Diet: Cardiac Diet attending - dr. olivas patient requires ongoing inpatient hospitalization for scheduled breathing treatments, IV steroids, close monitoring of oxygen saturation and because she continues to be sig dyspneic on minimal movement, shell likely have a return if sent home prematurely Quality Stroke Does the patient have a stroke diagnosis?: No VTE Prior VTE?: No VTE Risk Level:: Medical - moderate - high VTE Device Contraindication: Treatment Not Indicated VTE Drug Contraindication: N/A - Med Ordered
[2022-04-02] MEDS: Montelukast Sodium 10 MG TABLET PO (20:29)
[2022-04-02] MEDS: Enoxaparin Sodium 40 MG/0.4 ML SYRINGE SUBCUT (20:29)
[2022-04-03 03:40] VITALS: BP 144/88; PULSE 84; RESP 18; TEMP 36.3; O2SAT 92
[2022-04-03] MEDS: Fluticasone/Vilanterol 100/25 BLST.W.DEV 1 PUFF INHALE (07:47)
[2022-04-03] MEDS: Albuterol/Iprat 2.5/0.5MG 3 ML AMPUL.NEB INHALE ×2 (07:47→11:32)
[2022-04-03 07:48] VITALS: PULSE 82; RESP 18; O2SAT 95
[2022-04-03 07:56] VITALS: BP 139/82; PULSE 79; RESP 18; TEMP 36.5; O2SAT 93
[2022-04-03] MEDS: amLODIPine Besylate 5 MG TABLET PO (09:56)
[2022-04-03] MEDS: lisinopriL 20 MG TABLET PO (09:56)
[2022-04-03] MEDS: methylPREDNISolone Sod Succ 40 MG/ML VIAL IVPUSH (09:56)
[2022-04-03] MEDS: Cholecalciferol (Vitamin D3) 25 MCG TABLET 50 MCG PO (09:56)
[2022-04-03] MEDS: Omeprazole 20 MG CAPSULE.DR PO (09:57)
[2022-04-03] MEDS: 0.9 % Sodium Chloride Flush 3 ML SYRINGE IVFLUSH (09:57)
[2022-04-03] MEDS: Anastrozole 1 MG TABLET PO (09:57)
--- NOTE | 2022-04-03 10:31 | PM.DS ---
DS: Providers Provider Date of Service: 04/03/22 Date of admission: 03/30/22 19:19 Primary care physician: Branden Culp MD DS: Diagnosis Discharge Diagnosis (1) Acute and chronic respiratory failure with hypoxia: Status: Acute (2) Acute exacerbation of COPD with asthma: Status: Acute DS: Summary Hospital Course Hospital Course: 58-year-old female with past medical history of chronic hypoxic respiratory failure on baseline 2 L of oxygen secondary to asthma / COPD, HTN, history of breast cancer status post mastectomy, history of lung cancer status post radiation therapy who presented to the emergency department on 03/30 for management of COPD/asthma exacerbation. Patient was requiring 5 L of oxygen on initial admission. She has no on her baseline oxygen of 2 L satting in the low 90s. Patient had dyspnea on minimal exertion which has now resolved. Patient was treated with DuoNeb p.r.n. as well as scheduled around the clock as well as Solu-Medrol. Patient is now at her baseline. Reports that she is ambulating without difficulty and shortness of breath. We will send her home on 5 more days of prednisone. Recommended follow-up with PCP in 1 week. Continue nebulized treatment as needed. Will be discharged home on her baseline 2 L of oxygen. Time Spent with Patient Time attestation: Total time spent providing and/or coordinating discharge services: Discharge coordination time: Greater than 30 minutes Quality: Safe Use of Opioids Does Pt have an Active Cancer Diagnosis on the Problem List?: No Quality: Stroke Does the patient have a stroke diagnosis?: No Physical Exam Vital Signs: Vital Signs: Last Vital Signs Temp 97.7 F 04/03/22 07:56 Pulse 79 04/03/22 07:56 Resp 18 04/03/22 07:56 BP 139/82 04/03/22 07:56 Pulse Ox 93 04/03/22 07:56 O2 Del Method 04/03/22 07:56 O2 Flow Rate 2 04/03/22 07:56 BMI result Body Mass Index 22.3 Const: Other: patient is alert, oriented x3, no acute distress Resp: Other: Some wheezing on expiration Cardio: Other: normal rate and rhythm GI: Other: abdomen is soft nontender Extrem: Other: no lower extremity edema DS: Data Data Completed and Pending Labs on day of discharge: Preliminary micro results at discharge 03/30/22 16:15 Blood Culture - Preliminary Blood - Venous No growth after 48 hours. 03/30/22 16:16 Blood Culture - Preliminary Blood - Venous No growth after 48 hours. Discharge Plan Discharge Anticipated Discharge Date/Time: 04/03/22 13:24 Patient Disposition: Home, Self-Care Discharge Diagnosis: COPD/Asthma exacerbation Referrals: Branden Culp MD [Primary Care Provider] - 1 Week Discharge Medications: New prednisone 20 mg tablet 40 mg PO DAILY 5 Days Qty: 10 0RF Continued anastrozole 1 mg tablet 1 tab PO DAILY ipratropium-albuterol 0.5 mg-3 mg(2.5 mg base)/3 mL solution for nebulization 3 ml inhalation QID lisinopril 20 mg tablet 1 tab PO DAILY amlodipine 5 mg tablet 1 tab PO DAILY omeprazole 20 mg capsule,delayed release(DR/EC) 1 cap PO BID montelukast 10 mg tablet 1 tab PO BEDTIME Spiriva Respimat 2.5 mcg/actuation mist 2 puff INHALATION DAILY acetaminophen 325 mg Tablet 325 mg PO QID PRN (Reason: Pain) albuterol sulfate [ProAir HFA] 90 mcg/actuation Hfa Aerosol Inhaler 2 puff INHALATION Q4-6H PRN (Reason: Wheezing) budesonide-formoterol [Symbicort] 80-4.5 mcg/actuation Hfa Aerosol Inhaler 1 inh INHALATION BID cholecalciferol (vitamin D3) [Vitamin D3] 50 mcg (2,000 unit) Capsule 50 mcg PO DAILY Discharge Orders: Discharge Order (Routine); Ordered 04/03/22 Ordered By: Perfecto Ambrose Diet: Advance to usual diet Activity on Discharge: As tolerated Stand Alone Forms: Patient Portal Discharge page Care Plan Goals: Continue prednisone 40 mg daily for 5 more days Nebulized breathing treatment as needed recommend follow up with PCP Health Concerns: recurrent hypoxia/copd/asthma exacerbation Plan of Treatment: continue prednisone x5days Assessment: as above
[2022-04-03 11:34] VITALS: PULSE 83; RESP 16; O2SAT 92
--- NOTE | 2022-04-03 14:28 | MHC.CM.PN ---
PT TO DC HOME TODAY WITH NO SERVICES FAMILY TO TRANSPORT
== END 2022-04-03 14:35 | disposition home or self-care (01) | DRG 191 ==
LOC: HO.ED 19:14 → HO.EDOVER 19:32 → HO.S3 03-31 12:48
PROVIDERS: Physician Assistant; Admitting Provider Student in an Organized Health Care Education/Training Program; Emergency Provider Emergency Medicine; PCP Internal Medicine; Visit Provider Internal Medicine
DX: J44.0 Chronic obstructive pulmonary disease with (acute) lower respiratory infection (principal); J45.901 Unspecified asthma with (acute) exacerbation; J44.1 Chronic obstructive pulmonary disease with (acute) exacerbation; J20.9 Acute bronchitis, unspecified; K21.9 Gastro-esophageal reflux disease without esophagitis; C50.919 Malignant neoplasm of unspecified site of unspecified female breast; Z85.118 Personal history of other malignant neoplasm of bronchus and lung; D72.829 Elevated white blood cell count, unspecified; I10 Essential (primary) hypertension; Z20.822 Contact with and (suspected) exposure to COVID-19; Z92.3 Personal history of irradiation; Z87.891 Personal history of nicotine dependence; Z79.811 Long term (current) use of aromatase inhibitors; Z79.899 Other long term (current) drug therapy
CPT/HCPCS: 0241U; 36415; 71045; 80048; 80053; 81003; 83605; 83735; 83880; 84484; 85025; 85379; 87040; 87635; 93005; 94640; 99285; J1650; J2920; J2930; J3475

== ENCOUNTER 2023-05-18 09:38 | Inpatient (IN) | payer MEDICARE, OTHER, SELFPAY ==
[2023-05-18] VITALS (11 sets, daily range): BP systolic 89–135; BP diastolic 55–74; PULSE 86–120; RESP 16–26; TEMP 35.8–36.9; O2SAT 86–94; BMI 19.6
--- NOTE | ~2023-05-18 | XR_ITS ---
EXAMINATION: XR CHEST CLINICAL INFORMATION: Dyspnea. COMPARISON: Chest radiograph from 03/30/2022. TECHNIQUE: AP portable upright radiograph of the chest was obtained. FINDINGS: The lungs are hyperexpanded. Chronically increased irregular pulmonary markings throughout. Irregular faint pulmonary opacity in the right lung apex appears mildly progressed compared to 2022. A region of irregular consolidation in the right lung base also appears mildly progressed compared to 2022. No additional dense focal consolidative process. No evidence of pleural effusion, alveolar pulmonary edema, or pneumothorax. The cardiomediastinal silhouette is within normal limits. Aortic calcifications. No acute osseous abnormalities. XR/XR chest 1V IMPRESSION: 1. Changes suggestive of underlying COPD. 2. Mild progression of irregular pulmonary opacities in the right lung apex and right lung base compared to 2022. Findings are nonspecific and may represent a developing infectious/inflammatory process in the appropriate clinical setting. However, follow-up chest CT would better characterize any potential underlying lesions.
--- NOTE | ~2023-05-18 | CT_ITS ---
EXAMINATION: CT ANGIOGRAM OF THE CHEST WITH AND WITHOUT CONTRAST (CT PULMONARY ANGIOGRAM FOR PE) CLINICAL INFORMATION: Reason for Exam hypoxia, dyspnea hx of lung cancer COMPARISON: None available. TECHNIQUE: Prior to contrast administration, noncontrast localization images were obtained. Subsequently, multidetector volumetric imaging was performed from the thoracic inlet to below the diaphragms following the administration of 80 mL Omnipaque 350 intravenous contrast. No contrast reaction reported Sagittal, coronal, and MIP oblique sagittal reformatted images were obtained on the CT workstation, uploaded to PACS, and reviewed. This CT examination was performed using dose optimization techniques as appropriate, variously including the following: *Automated exposure control *Adjustment of mA and/or kV according to patient size (this includes techniques or standardized protocols for targeted exams where dose is matched to indication/reason for exam; i.e. extremities or head) *Use of iterative reconstruction technique Total exam dose-length product 184 mGy-cm FINDINGS: QUALITY OF STUDY/CONTRAST BOLUS: Satisfactory. PULMONARY ARTERIES: No pulmonary emboli. THORACIC AORTA: No aneurysm. LUNG: There is diffuse centrilobular emphysema with right apical pleural-based mass with contiguous spiculated density in the right upper lobe question chronic scarring. There is parenchymal ill-defined opacity right lower lobe likely chronic scarring or parenchymal mass with extension to the right medial basilar pleura. Parenchymal patchy opacities seen right middle lobe and lingula. PLEURA: No pleural effusion or pneumothorax. MEDIASTINUM: The thyroid lobes are symmetrical and normal. Normal heart size. No pericardial effusion. There is abnormal precarinal and subcarinal lymphadenopathy. The subcarinal lymph node is approximately 1.5 cm in AP length image 67/12. No evidence of septal bowing or right heart strain. CORONARY ARTERY CALCIFICATION: None visualized on this study. CHEST WALL/AXILLA: No axillary or internal mammary lymphadenopathy. OSSEOUS STRUCTURES: There is diffuse osteopenia without lytic or sclerotic process. There is superior endplate deformity T11 and L1 vertebra likely chronic. UPPER ABDOMEN: Unremarkable. No reflux of contrast into the hepatic veins to suggest elevated right heart pressures. CT/CT angio chest PE protocol IMPRESSION: 1. No evidence of PE. 2. No evidence aortic dissection or aneurysm. 3. Diffuse centrilobular emphysema with right apical pleural-based mass with contiguous spiculated density in the right upper lobe question chronic scarring versus mass. There is parenchymal opacity right lower lobe with extension to the right medial basilar pleura, question mass versus infiltrate. 4. Peripheral right middle lobe and lingular parenchymal opacity question infiltrate versus mass 5. There is abnormal precarinal and subcarinal lymphadenopathy. 6. VTE: negative. 7. Recommend correlation with outside CT chest if available
--- NOTE | 2023-05-18 09:51 | ECG_ITS ---
Test Reason : DYSPNEA Blood Pressure : / mmHG Vent. Rate : 113 BPM Atrial Rate : 113 BPM P-R Int : 130 ms QRS Dur : 072 ms QT Int : 314 ms P-R-T Axes : 084 069 061 degrees QTc Int : 430 ms Sinus tachycardia Cannot rule out Anterior infarct , age undetermined Abnormal ECG When compared with ECG of 30-MAR-2022 15:22, No significant change was found Referred By: Marichuy Martinez Electronically Signed By:HERIBERTO TURCIOS
[2023-05-18] MEDS: methylPREDNISolone Sod Succ 125 MG/2 ML VIAL 60 MG IVPUSH (10:07)
--- NOTE | 2023-05-18 10:07 | ED.ASTHMA ---
HPI - Asthma General Chief Complaint: Dyspnea Stated Complaint: diff breathing Time Seen by Provider: 05/18/23 09:49 Source: patient and old records reviewed Mode of arrival: ambulatory Limitations: no limitations History of Present Illness HPI Narrative: 68 yo female with hx of asthma normally on 2L NC - states her typical O2 sat is 96%, HTN, breast cancer s/p mastectomy, lung cancer s/p radiation s/p radiation monitored at [facility] with [address] scans who comes in with c/o 1 week of dyspnea, cough, fatigue and checked a temp of 100.7 this AM no meds taken. She denies travel or sick contacts. She took a neb this AM but it didn not help. She states she has a mild headache. She is O2 depedent at home but sats are in the 80s even increasing O2 to 3L NC complaint: asthma attack , shortness of breath and wheezing Onset (ago): week(s) (1) Severity: worse than usual Context: recent URI Associated symptoms: productive cough Asthma History: childhood onset Treatments Prior to Arrival: inhaled bronchodilator and oxygen Related Data Home Medications Medication Instructions Recorded Confirmed albuterol sulfate 90 mcg/actuation 2 puff inhalation Q4-6H PRN 03/30/22 05/18/23 aerosol inhaler (ProAir HFA) Wheezing amlodipine 5 mg tablet 1 tab PO DAILY 03/30/22 05/18/23 anastrozole 1 mg tablet 1 tab PO DAILY 03/30/22 05/18/23 budesonide-formoterol HFA 80 1 inh inhalation BID 03/30/22 05/18/23 mcg-4.5 mcg/actuation aerosol inhaler (Symbicort) cholecalciferol (vitamin D3) 50 50 mcg PO DAILY 03/30/22 05/18/23 mcg (2,000 unit) capsule (Vitamin D3) ipratropium 0.5 mg-albuterol 3 mg 3 ml inhalation QID 03/30/22 05/18/23 (2.5 mg base)/3 mL nebulization soln lisinopril 20 mg tablet 1 tab PO DAILY 03/30/22 05/18/23 montelukast 10 mg tablet 1 tab PO BEDTIME 03/30/22 05/18/23 omeprazole 20 mg capsule,delayed 1 cap PO BID 03/30/22 05/18/23 release tiotropium bromide 2.5 2 puff inhalation DAILY 03/30/22 05/18/23 mcg/actuation mist for inhalation (Spiriva Respimat) azithromycin 500 mg tablet 500 mg PO MOWEFR@0900 05/18/23 05/18/23 hydroxychloroquine 200 mg tablet 200 mg PO BID 05/18/23 05/18/23 prednisone 5 mg tablet 5 mg PO DAILY 05/18/23 05/18/23 Allergies Allergy/AdvReac Type Severity Reaction Status Date / Time strawberry Allergy Rash Verified 03/30/22 21:41 Review of Systems Review of Systems: Constitutional : pos Fever, pos Chills ENT/Mouth : No Hoarseness, No sore throat, No Rhinorrhea Eyes: No Redness, No Discharge, No Vision Changes Cardiovascular : No Chest Pain, positive SOB, positive Dyspnea on Exertion, No Edema Respiratory : positive Cough, No Sputum, positive Wheezing, Gastrointestinal : pos Nausea, No Vomiting, No Diarrhea, No abdominal Pain Genitourinary : No Dysuria, No Hematuria Musculoskeletal : No joint pain, No Myalgias Skin : No rash Neuro : pos Weakness, No Numbness, No Headache Psych : No anxiety, depression Heme/Lymph: No Bruising, No Bleeding Endocrine : No Polyuria, No Polydipsia All other systems reviewed and are negative PMFSH Past Medical History Attestation statement: The following information was validated with the patient. Source: old records reviewed Medical History COPD (chronic obstructive pulmonary disease) Asthma Lung cancer Breast cancer Essential hypertension Upper respiratory infection Asthma with exacerbation Social History Social History Household Members: None Housing: House Do you presently have visiting nurse or other home services: No Patient Tobacco Use Status: Former Tobacco user Tobacco use type: Cigarette Substance Use Type: Caffiene Advance Directives: No Advance Directives Information Provided: Yes service: No Current occupational status: retired Physical Exam Vital Signs: Vital Signs: Last Vital Signs Temp 97.9 F 05/18/23 13:41 Pulse 98 05/18/23 14:25 Resp 19 05/18/23 14:25 BP 94/57 L 05/18/23 14:25 Pulse Ox 92 05/18/23 14:25 O2 Del Method Nasal Cannula 05/18/23 14:25 O2 Flow Rate 2 05/18/23 14:25 Oxygen Flow Rate 3 05/18/23 09:44 BMI result Body Mass Index 19.6 Appearance: Alert. Oriented X3. No acute distress. Eyes: Pupils equal, round and reactive to light. ENT: Pharynx normal. Neck: Normal inspection. Neck supple. CVS: tachycardic heart rate and rhythm. Pulses normal. Respiratory: Mild respiratory distress - tachypnea and retractions. Breath sounds very diminished Abdomen: Soft and nontender. Skin: Skin warm and dry. Normal skin color. Normal skin turgor. Extremities: No lower extremity edema. No calf ttp Neuro: Oriented X 3. No motor deficit. No sensory deficit. Medications Administered Generic Name Dose Route Start Last Admin Trade Name Freq PRN Reason Stop Dose Admin Sodium Chloride 1,000 mls @ 100 mls/hr 05/18/23 14:00 05/18/23 14:22 Ns IVCONT 100 mls/hr .Q10H ERIN Administration Azithromycin 500 mg/ Sodium 250 mls @ 125 mls/hr 05/18/23 13:54 05/18/23 14:20 Chloride IV 05/18/23 15:53 125 mls/hr ONCE ONE Administration Discontinued Medications Generic Name Dose Route Start Last Admin Trade Name Freq PRN Reason Stop Dose Admin Acetaminophen 650 mg 05/18/23 11:01 05/18/23 11:16 Acetaminophen 325 Mg Tablet PO 05/18/23 11:02 650 mg ONCE ONE Administration Albuterol Sulfate 5 mg/ 0 mg 05/18/23 10:14 05/18/23 10:17 Albuterol/Ipratropium 3 ml INHALE 05/18/23 10:15 7.5 each ONCE ONE Administration Ceftriaxone Sodium 1 gm/ 50 mls @ 100 mls/hr 05/18/23 09:50 05/18/23 10:59 Sodium Chloride IV 05/18/23 10:19 Infused ONCE ONE Infusion Iohexol 65 ml 05/18/23 12:43 05/18/23 12:43 Iohexol 350 Mg/Ml 100 Ml Infus..Btl IV 05/18/23 12:44 65 ml ONCE ONE Administration Methylprednisolone Sodium Succinate 60 mg 05/18/23 09:50 05/18/23 10:07 Methylprednisolone Sod Succ 125 Mg/2 Ml Vial IVPUSH 05/18/23 09:51 60 mg ONCE ONE Administration Medical Decision Making Medical Decision Making [facility] Narrative: 68 yo female with hx of asthma normally on 2L NC - states her typical O2 sat is 96%, HTN, breast cancer s/p mastectomy, lung cancer s/p radiation s/p radiation monitored at [facility] with [address] scans here with hypoxia, fevers, cough, wheezing at this time labs, cultures, viral panel, CXR, IV steroids - takes prednisone 10mg MWF - empiric ceftriaxone and if she still requires O2 will admit Differential Diagnosis Differential Diagnoses: The differential diagnosis associated with the presentation includes pneumonia, COPD, viral panel Admission/Observation Consideration of admission/observation: Escalation of care including admission/observation considered admit for hypoxia and antibiotics Consult Healthcare Provider Management of the patient was discussed with: Hospitalist (will admit) Lab Data [facility] Lab Attestation statement: I reviewed the patient's lab results. 05/18/23 10:04 05/18/23 10:04 Labs: Lab Results 05/18/23 05/18/23 05/18/23 Range/Units 10:04 10:16 10:18 WBC 8.1 (4.8-10.8) X10*3/uL RBC 5.39 (4.20-5.50) X10*6/uL Hgb 15.3 (12.0-16.0) g/dl Hct 45.8 (37.0-47.0) % MCV 85.0 (80.0-98.0) fL MCH 28.4 (27.0-33.0) pg MCHC 33.4 (31.0-35.0) g/dl RDW 12.3 (11.0-16.0) % Plt Count 334 (160-400) X10*3/uL MPV 11.2 (9.4-12.3) fL Immature Gran % (Auto) 0.6 H (0.0-0.4) % Neut % (Auto) 76.5 H (45-73) % Lymph % (Auto) 9.9 L (20-40) % Catron % (Auto) 11.3 H (2-11) % Eos % (Auto) 0.7 (0-4) % Baso % (Auto) 1.0 (0-2) % Lymph # (Auto) 0.8 L (1.2-4.9) X10*3/uL [place] # (Auto) 0.9 (0.1-1.2) X10*3/uL Eos # (Auto) 0.1 (0.0-0.4) X10*3/uL Baso # (Auto) 0.1 (0.0-0.2) X10*3/uL Abs Immat Gran (auto) 0.05 H (0.00-0.03) X10*3/uL Absolute Neuts (auto) 6.2 (2.0-8.3) x10*3/uL Absolute Nucleated RBC 0.000 (0.0-0.012) X10*3/uL Nucleated RBC % (auto) 0.0 (0.0-0.2) /100WBC VBG pH 7.47 H (7.32-7.43) VBG pCO2 40 mmHg VBG pO2 41 mmHg VBG HCO3 29 H (22-26) mmol/L VBG O2 Saturation 73.0 % VBG Base Excess 5.6 mmol/L Sodium 133 L (135-145) mmol/L Potassium 4.1 (3.3-5.1) mmol/L Chloride 97 (96-108) mmol/L Carbon Dioxide 26 (22-29) mmol/L Anion Gap 14 (12-20) BUN 9 (9-16) mg/dL Creatinine 0.69 (0.5-1.4) mg/dL Estim Creat Clear Calc 64.1 Estimated GFR > 60 Random Glucose 89 (60-115) mg/dL Lactic Acid 1.0 (0.5-2.0) mmol/L Calcium 9.7 (8.4-10.2) mg/dL Magnesium 1.7 (1.6-2.6) mg/dL Total Bilirubin 0.3 (0.0-1.0) mg/dL Direct Bilirubin 0.1 (0.0-0.5) mg/dL AST 22 (5-31) U/L ALT 16 (0-31) U/L Alkaline Phosphatase 75 (39-117) U/L Troponin I High Sens < 2.7 (<3.5-17.0) ng/L B-Natriuretic Peptide 27 (<100) pg/mL Total Protein 7.3 (6.5-8.0) g/dL Albumin 4.0 (3.5-5.0) g/dL Lipase 18 (8-78) U/L Procalcitonin 0.03 ng/mL Influenza Type A (PCR) NEGATIVE (Negative) Influenza Type B (PCR) NEGATIVE (Negative) RSV RNA Qual (PCR) NEGATIVE (Negative) SARS-CoV-2 RNA (RT-PCR) NEGATIVE (Negative) Independent Interpretation I performed an independent interpretation of an: EKG, Plain X-Ray and CT Scan (no PE, mass vs pneumonia) Interpretation: Rate: 113 Rhythm: sinus tachycardia [place]: normal Normal P waves. Normal CAMMIE. Normal QRS complex. ST T wave : normal no STEVE qTC: normal prior studies: no acute ischemia The study has been interpreted contemporaneously by me. . Radiology Impression Discussion of test interpretation with radiology: I have reviewed the radiologist's reading. External Record Review External record reviewed: Inpatient record Critical Care Time Critical Care Time Critical Care Time: Yes Total Critical Care Time: 40 Attestation: repeat nebs, review of records, hypoxia treatment, admission I attest to this time spent taking care of the patient Discharge Plan Discharge Clinical Impression: Acute exacerbation of chronic obstructive airways disease, Hypoxia, Lesion of lung Pneumonia Qualifiers: Pneumonia type: due to unspecified organism Laterality: bilateral Lung location: unspecified part of lung Qualified Code(s): J18.9 - Pneumonia, unspecified organism Patient Disposition: Admitted As Inpatient
[2023-05-18] MEDS: Albuterol Sulfate 5 MG, Albuterol/Iprat 2.5/0.5MG 3 ML 3 ML INHALE (10:17)
[2023-05-18 10:24] LABS: VBG Base Excess 5.6 mmol/L; VBG HCO3 29 mmol/L (22-26); VBG pCO2 40 mmHg; VBG pH 7.47 (7.32-7.43); VBG pO2 41 mmHg
[2023-05-18 10:26] LABS: Venous Blood Gas Refer to POC result
[2023-05-18] MEDS: cefTRIAXone sodium 1 GM in 0.9 % Sodium Chloride 50 ML IV (10:27)
[2023-05-18 10:33] LABS: B Type Natriuretic Peptide 27 pg/mL (<100)
[2023-05-18 10:43] LABS: Alanine Aminotransferase 16 U/L (0-31); Alkaline Phosphatase 75 U/L (39-117); Anion Gap 14 (12-20); Aspartate Amino Transferase 22 U/L (5-31); Bilirubin Direct 0.1 mg/dL (0.0-0.5); Bilirubin Total 0.3 mg/dL (0.0-1.0); Blood Urea Nitrogen 9 mg/dL (9-16); Calcium 9.7 mg/dL (8.4-10.2); Carbon Dioxide 26 mmol/L (22-29); Chloride 97 mmol/L (96-108); Creatinine Clr Calc Pharmacy 64.1; Estimated Glomerular Filt Rate > 60; Glucose Random 89 mg/dL (60-115); Lipase 18 U/L (8-78); Magnesium 1.7 mg/dL (1.6-2.6); Potassium 4.1 mmol/L (3.3-5.1); Sodium 133 mmol/L (135-145); Total Protein 7.3 g/dL (6.5-8.0)
[2023-05-18 11:04] LABS: Influenza A PCR NEGATIVE (Negative); Influenza B PCR NEGATIVE (Negative); Resp Syncy Virus RNA Qual PCR NEGATIVE (Negative); SARS COV2 PCR INHOUSE NEGATIVE (Negative)
[2023-05-18 11:05] LABS: Troponin-I High Sensitivity < 2.7 ng/L (<3.5-17.0)
[2023-05-18] MEDS: Acetaminophen 325 MG TABLET 650 MG PO (11:16)
[2023-05-18 11:21] LABS: Procalcitonin 0.03 ng/mL
[2023-05-18] MEDS: iohexoL 350 MG/ML 100 ML INFUS..BTL 65 ML IV (12:43)
[2023-05-18 12:49] LABS: Basophils Absolute Auto 0.1 X10*3/uL (0.0-0.2); Eosinophils Absolute Auto 0.1 X10*3/uL (0.0-0.4); Eosinophils Percent Auto 0.7 % (0-4); Hematocrit 45.8 % (37.0-47.0); Hemoglobin 15.3 g/dl (12.0-16.0); Imm Gran Abs Auto 0.05 X10*3/uL (0.00-0.03); Imm Gran Pct Auto 0.6 % (0.0-0.4); Lymphocytes Absolute Auto 0.8 X10*3/uL (1.2-4.9); Lymphocytes Percent Auto 9.9 % (20-40); MANUAL DIFF FLAG NO; Mean Corpuscular HGB Conc 33.4 g/dl (31.0-35.0); Mean Corpuscular Hemoglobin 28.4 pg (27.0-33.0); Mean Platelet Volume 11.2 fL (9.4-12.3); Monocytes Absolute Auto 0.9 X10*3/uL (0.1-1.2); Monocytes Percent Auto 11.3 % (2-11); Neutrophils Absolute Auto 6.2 x10*3/uL (2.0-8.3); Neutrophils Percent Auto 76.5 % (45-73); Platelet Count 334 X10*3/uL (160-400); Red Blood Count 5.39 X10*6/uL (4.20-5.50); Red Cell Distribution Width 12.3 % (11.0-16.0); White Blood Count 8.1 X10*3/uL (4.8-10.8)
[2023-05-18] MEDS: Azithromycin 500 MG in 0.9 % Sodium Chloride 250 ML 125 MG IV (14:20)
[2023-05-18] MEDS: 0.9 % Sodium Chloride 1,000 ML 100 ML IVCONT (14:22)
--- NOTE | 2023-05-18 15:23 | PHA.MEDREC ---
Pharmacy Consult ? Medication Reconciliation Pharmacy has completed the medication reconciliation. Patient had med list.
--- NOTE | 2023-05-18 15:52 | P.HPHOSP_ITS ---
History of Present Illness Date of Service: 05/18/23 Chief Complaint: sob 68-year-old female patient with past medical history of breast cancer status post mastectomy, lung cancer status post radiation being followed at [facility] is on 2 L of home oxygen patient presented to [place] ER with 1 week history of shortness of breath, dry cough, no fevers, no chills, no recent history of travel, no sick contacts patient has been using her updraft treatment without any benefit since today she became more lightheaded, felt weak and had a temperature of 100.7 degrees therefore came to the emergency room in the ER patient was noted to have shortness of breath, hypoxia chest x-ray suggestive of bilateral pneumonia therefore being admitted to [facility]. Review of Systems 2 Review of Systems: General no headache, no fever chills,+LH CVS no chest pain, no palpitation. Respiratory dry cough, shortness of breath Gastrointestinal no nausea no vomiting, no abdominal pain no urgency no frequency Musculoskeletal no worsening pain PMFSH Medical History COPD (chronic obstructive pulmonary disease) Asthma Lung cancer Breast cancer Essential hypertension Upper respiratory infection Asthma with exacerbation Pertinent family history: No significant family history of coronary artery disease Social History Household Members: None Housing: House Do you presently have visiting nurse or other home services: No Patient Tobacco Use Status: Former Tobacco user Tobacco use type: Cigarette Use of substances other than those prescribed or required for medical reasons: No Substance Use Type: Caffiene Currently Displaying Signs/Symptoms of Drug Intoxication Withdrawal: No Have you been hit, kicked, punched, or otherwise hurt by someone within the past year? If so, by whom?: No Do you feel safe in your current relationship?: No Current Relationship Is there a partner from a previous relationship who is making you feel unsafe now?: No Are you made to feel afraid or neglected: No Advance Directives: No Advance Directives Information Provided: Yes Do you have thoughts of harming others: None Do you have a plan to hurt others: No Plan Recently lost weight without trying: Yes How much weight loss: Unsure Eating poorly because of decreased appetite: Yes Nutrition screen score: 5 Nutrition Risks: Poor intake 0-25% >4 days Patient : No : No Poor oral hygiene: No service: No Current occupational status: retired Meds Allergies Allergy/AdvReac Type Severity Reaction Status Date / Time strawberry Allergy Rash Verified 03/30/22 21:41 Active Medications: Current Medications Sodium Chloride (Ns) 1,000 mls @ 100 mls/hr IVCONT .Q10H ERIN Last Admin: 05/18/23 14:22 Dose: 100 mls/hr Azithromycin 500 mg/ Sodium (Chloride) 250 mls @ 125 mls/hr IV ONCE ONE Stop: 05/18/23 15:53 Last Admin: 05/18/23 14:20 Dose: 125 mls/hr Home Medications Medication Instructions Recorded Confirmed Last Taken Type albuterol sulfate 90 mcg/actuation 2 puff inhalation Q4-6H PRN 03/30/22 05/18/23 03/30/22 History aerosol inhaler (ProAir HFA) Wheezing amlodipine 5 mg tablet 1 tab PO DAILY 03/30/22 05/18/23 05/17/23 History anastrozole 1 mg tablet 1 tab PO DAILY 03/30/22 05/18/23 05/17/23 History budesonide-formoterol HFA 80 1 inh inhalation BID 03/30/22 05/18/23 05/17/23 History mcg-4.5 mcg/actuation aerosol inhaler (Symbicort) cholecalciferol (vitamin D3) 50 50 mcg PO DAILY 03/30/22 05/18/23 05/17/23 History mcg (2,000 unit) capsule (Vitamin D3) ipratropium 0.5 mg-albuterol 3 mg 3 ml inhalation QID 03/30/22 05/18/23 05/17/23 History (2.5 mg base)/3 mL nebulization soln lisinopril 20 mg tablet 1 tab PO DAILY 03/30/22 05/18/23 05/17/23 History montelukast 10 mg tablet 1 tab PO BEDTIME 03/30/22 05/18/23 05/17/23 History omeprazole 20 mg capsule,delayed 1 cap PO BID 03/30/22 05/18/23 05/17/23 History release tiotropium bromide 2.5 2 puff inhalation DAILY 03/30/22 05/18/23 05/17/23 History mcg/actuation mist for inhalation (Spiriva Respimat) azithromycin 500 mg tablet 500 mg PO MOWEFR@0900 05/18/23 05/18/23 05/17/23 History hydroxychloroquine 200 mg tablet 200 mg PO BID 05/18/23 05/18/23 05/17/23 History prednisone 5 mg tablet 5 mg PO DAILY 05/18/23 05/18/23 05/17/23 History Physical Exam 2 Vital Signs and Narrative: Vital Signs: Last Vital Signs Temp 97.9 F 05/18/23 13:41 Pulse 98 05/18/23 14:25 Resp 19 05/18/23 14:25 BP 94/57 L 05/18/23 14:25 Pulse Ox 92 05/18/23 14:25 O2 Del Method Nasal Cannula 05/18/23 14:25 O2 Flow Rate 2 05/18/23 14:25 Oxygen Flow Rate 3 05/18/23 09:44 BMI result Body Mass Index 19.6 Const: Other: General awake alert x3, in no acute distress. HEENT anicteric sclera Neck supple no JVD. CVS regular rate rhythm, Respiratory lungs bilateral diffuse expiratory wheeze/rhonchi no use of accessory muscles ,no rales. Gastrointestinal abdomen soft, non tender, bowel sounds audible, no guarding , no rigidity. Extremities no edema. Neuro nonfocal Skin no rash Psych appropriate affect Results Labs 05/18/23 10:04 05/18/23 10:04 Labs: Laboratory Results - last 24 hr 05/18/23 05/18/23 05/18/23 10:04 10:16 10:18 MCV 85.0 MCH 28.4 MCHC 33.4 RDW 12.3 Plt Count 334 MPV 11.2 Immature Gran % (Auto) 0.6 H Neut % (Auto) 76.5 H Lymph % (Auto) 9.9 L Jay % (Auto) 11.3 H Eos % (Auto) 0.7 Baso % (Auto) 1.0 Lymph # (Auto) 0.8 L Jay # (Auto) 0.9 Eos # (Auto) 0.1 Baso # (Auto) 0.1 Abs Immat Gran (auto) 0.05 H Absolute Neuts (auto) 6.2 Absolute Nucleated RBC 0.000 Nucleated RBC % (auto) 0.0 VBG pH 7.47 H VBG pCO2 40 VBG pO2 41 VBG HCO3 29 H VBG O2 Saturation 73.0 VBG Base Excess 5.6 Anion Gap 14 Estim Creat Clear Calc 64.1 Estimated GFR > 60 Random Glucose 89 Lactic Acid 1.0 Calcium 9.7 Magnesium 1.7 Total Bilirubin 0.3 Direct Bilirubin 0.1 AST 22 ALT 16 Alkaline Phosphatase 75 B-Natriuretic Peptide 27 Total Protein 7.3 Albumin 4.0 Lipase 18 Procalcitonin 0.03 Influenza Type A (PCR) NEGATIVE Influenza Type B (PCR) NEGATIVE RSV RNA Qual (PCR) NEGATIVE SARS-CoV-2 RNA (RT-PCR) NEGATIVE Imaging Radiologist's Impressions: Impressions Chest X-Ray 05/18/23 10:10 IMPRESSION: 1. Changes suggestive of underlying COPD. 2. Mild progression of irregular pulmonary opacities in the right lung apex and right lung base compared to 2021. Findings are nonspecific and may represent a developing infectious/inflammatory process in the appropriate clinical setting. However, follow-up chest CT would better characterize any potential underlying lesions. Chest CTA 05/18/23 12:42 IMPRESSION: 1. No evidence of PE. 2. No evidence aortic dissection or aneurysm. 3. Diffuse centrilobular emphysema with right apical pleural-based mass with contiguous spiculated density in the right upper lobe question chronic scarring versus mass. There is parenchymal opacity right lower lobe with extension to the right medial basilar pleura, question mass versus infiltrate. 4. Peripheral right middle lobe and lingular parenchymal opacity question infiltrate versus mass 5. There is abnormal precarinal and subcarinal lymphadenopathy. 6. VTE: negative. 7. Recommend correlation with outside CT chest if available Assessment and Plan (1) Pneumonia: Qualifiers: Laterality: bilateral Lung location: unspecified part of lung P neumonia type: due to unspecified organism Qualified Code(s): J18.9 - Pneumonia, unspecified organism Status: Acute (2) Acute exacerbation of chronic obstructive airways disease: Status: Acute Plan 66-year-old female with pertinent history of chronic hypoxemic respiratory failure secondary to COPD , essential hypertension, history of breast cancer status post mastectomy, history of lung cancer status post radiation who presents to the emergency department for evaluation of shortness of breath and wheezing. Acute on chronic hypoxemic respiratory failure secondary to Acute COPD exacerbation/multi lobar pneumonia CTA chest showed no PE but showed diffuse centrilobular emphysema, right apical pleural base density question chronic scarring versus mass, right lower lobe opacity question mass versus infiltrate, peripheral right middle lobe and lingula pericardial opacity question infiltrate versus mass covid/flu/rsv negative Wean oxygen as tolerated on 2 L of home oxygen Will place on IV antibiotics ceftriaxone and azithromycin started on 05/18, IV steroids, scheduled and prn duonebs Supportive care with cough medication History of lung cancer being followed closely at [facility] with serial CT chest recommend close outpatient follow-up. Sepsis due to multilobar pneumonia Noted to have tachypnea tachycardia, no fevers, normal WBC, normal lactic acid, treat as above and follow. Mild hyponatremia likely due to pneumonia will follow bmp. Essential HTN Soft blood pressures on amlodipine and lisinopril, follow BP and resume home medications. GERD on omeprazole, history of breast cancer Continue anastrozole, Rheumatoid arthritis hold hydroxychloroquine and home dose of prednisone DVT prophylaxis: Lovenox 40mg daily patient requires 2 night inpatient hospitalization for IV antibiotics, scheduled breathing treatments, IV steroids, close monitoring of oxygen saturation. Quality Stroke Does the patient have a stroke diagnosis?: No VTE Prior VTE?: No VTE Risk Level:: Medical - moderate - high VTE Device Contraindication: Treatment Not Indicated VTE Drug Contraindication: N/A - Med Ordered
[2023-05-18] MEDS: Omeprazole 20 MG CAPSULE.DR PO (17:41)
[2023-05-18] MEDS: Enoxaparin Sodium 40 MG/0.4 ML SYRINGE SUBCUT (17:41)
[2023-05-18] MEDS: Albuterol/Iprat 2.5/0.5MG 3 ML AMPUL.NEB INHALE (20:05)
[2023-05-18] MEDS: guaiFENesin DM 100/10/5 ML 5 ML SYRUP 10 ML PO (20:20)
[2023-05-18] MEDS: methylPREDNISolone Sod Succ 40 MG/ML VIAL IVPUSH (20:21)
[2023-05-18] MEDS: Montelukast Sodium 10 MG TABLET PO (20:21)
[2023-05-19] VITALS (10 sets, daily range): BP systolic 113–127; BP diastolic 61–74; PULSE 83–102; RESP 18–20; TEMP 36.3–37; O2SAT 90–94
[2023-05-19 01:25] LABS: Appearance Urine Clear; Color Urine Yellow; Glucose Urine UA Negative (Negative); Leukocyte Esterase Urine Negative (Negative); Nitrite Urine Negative (Negative); PH 6.5 (5.0-9.0); Urine Blood Negative (Negative); Urine Ketones 15 mg/dL (Negative); Urine Protein Negative (Neg-Trace)
[2023-05-19] MEDS: Omeprazole 20 MG CAPSULE.DR PO ×2 (05:56→16:52)
[2023-05-19] MEDS: 0.9 % Sodium Chloride Flush 3 ML SYRINGE IVFLUSH ×3 (07:45→21:07)
[2023-05-19] MEDS: Cholecalciferol (Vitamin D3) 25 MCG TABLET 50 MCG PO (07:45)
[2023-05-19] MEDS: Anastrozole 1 MG TABLET PO (07:45)
[2023-05-19] MEDS: guaiFENesin DM 100/10/5 ML 5 ML SYRUP 10 ML PO ×3 (07:46→20:10)
[2023-05-19] MEDS: amLODIPine Besylate 5 MG TABLET PO (07:46)
[2023-05-19] MEDS: Albuterol/Iprat 2.5/0.5MG 3 ML AMPUL.NEB INHALE ×4 (07:52→20:16)
[2023-05-19] MEDS: Fluticasone/Vilanterol 100/25 BLST.W.DEV 1 PUFF INHALE (08:38)
--- NOTE | 2023-05-19 09:40 | MHC.CM.PN ---
IMM DELIVERED. PATIENT IS FROM HOME ALONE, FUNCTIONALLY INDEPENDENT. 2L HOME O2 - UNSURE OF SUPPLIER. PCP: JAIMIE CADENA MD HCP: PATIENT REPORTS DAUGHTER ELIDA SOLIZ IS HCP, . COPY REQUESTED. DECLINES TO COMPLETE UPDATED COPY. DCP: GOAL IS HOME, SELF CARE, DAUGHTER TO TRANSPORT. NO HX SNF OR VNA SERVICES. MAY BE OPEN TO VNA IF RECOMMENDED. CM WILL CONTINUE TO FOLLOW FOR DC NEEDS.
[2023-05-19] MEDS: methylPREDNISolone Sod Succ 40 MG/ML VIAL IVPUSH (10:26)
[2023-05-19] MEDS: cefTRIAXone sodium 1 GM in 0.9 % Sodium Chloride 50 ML IV (10:26)
--- NOTE | 2023-05-19 13:15 | HO.PM.IMPN ---
Subjective Subjective Date of Service: 05/19/23 Interval History: Feeling better complaining of persistent shortness of breath and congested cough worse at night time requiring 3 L of oxygen finger oximetry 92% denies fever, no chills, no nausea, no vomiting, no acute issues overnight, generally feels tired and fatigued. Review of Systems All other system reviewed and negative. Physical Exam Vital Signs: Vital Signs: Last Vital Signs Temp 97.6 F 05/19/23 07:20 Pulse 100 05/19/23 11:11 Resp 18 05/19/23 11:11 BP 116/70 05/19/23 07:20 Pulse Ox 92 05/19/23 07:20 O2 Del Method Nasal Cannula 05/19/23 07:20 O2 Flow Rate 3 05/19/23 07:20 Oxygen Flow Rate 3 05/18/23 09:44 BMI result Body Mass Index 19.6 Const: Other: General awake alert x3, in no acute distress. HEENT anicteric sclera Neck supple no JVD. CVS regular rate rhythm, Respiratory lungs bilateral expiratory wheeze/rhonchi ,no use of accessory muscles ,no rales. Gastrointestinal abdomen soft, non tender, bowel sounds audible, no guarding , no rigidity. Extremities no edema. Neuro nonfocal Skin no rash Psych appropriate affect Objective Data Active Medications Acetaminophen (Acetaminophen 325 Mg Tablet) 650 mg PO Q6H PRN PRN Reason: Pain, Mild (Pain Scale 1-3) Albuterol Sulfate (Albuterol Sulfate 90 Mcg 8 Gm Inhaler) 2 puff INHALE Q4H PRN PRN Reason: Wheezing Albuterol/Ipratropium (Albuterol/Iprat 2.5/0.5mg 3 Ml Ampul.Neb) 3 ml INHALE RQ4H WHILE AWAKE [facility] Last Admin: 05/19/23 11:11 Dose: 3 ml Documented By: KARINE Amlodipine Besylate (Amlodipine Besylate 5 Mg Tablet) 5 mg PO DAILY [facility]; Protocol Last Admin: 05/19/23 07:46 Dose: 5 mg Documented By: DAYANNA Anastrozole (Anastrozole 1 Mg Tablet) 1 mg PO DAILY [facility] Last Admin: 05/19/23 07:45 Dose: 1 mg Documented By: DAYANNA Benzonatate (Benzonatate 100 Mg Capsule) 100 mg PO TID PRN PRN Reason: Cough Docusate Sodium (Docusate Sodium 100 Mg Capsule) 100 mg PO DAILY PRN PRN Reason: Constipation Enoxaparin Sodium (Enoxaparin Sodium 40 Mg/0.4 Ml Syringe) 40 mg SUBCUT Q24H [facility] Last Admin: 05/18/23 17:41 Dose: 40 mg Documented By: LETICIA Fluticasone/Vilanterol (Fluticasone/Vilanterol 100/25 Blst.W.Dev) 1 puff INHALE RDAILY [facility] Last Admin: 05/19/23 08:38 Dose: 1 puff Documented By: KARINE Guaifenesin/Dextromethorphan (Guaifenesin Dm 100/10/5 Ml 5 Ml Syrup) 10 ml PO TID [facility] Last Admin: 05/19/23 07:46 Dose: 10 ml Documented By: DAYANNA Ceftriaxone Sodium 1 gm/ (Sodium Chloride) 50 mls @ 100 mls/hr IV Q24H [facility] Last Infusion: 05/19/23 11:07 Dose: Infused Documented By: DAYANNA Azithromycin 500 mg/ Sodium (Chloride) 250 mls @ 125 mls/hr IV Q24H [facility] Melatonin (Melatonin 3 Mg Tablet) 3 mg PO BEDTIME PRN PRN Reason: Insomnia Methylprednisolone Sodium Succinate (Methylprednisolone Sod Succ 40 Mg/Ml Vial) 40 mg IVPUSH Q12H [facility] Last Admin: 05/19/23 10:26 Dose: 40 mg Documented By: DAYANNA Montelukast Sodium (Montelukast Sodium 10 Mg Tablet) 10 mg PO BEDTIME [facility] Last Admin: 05/18/23 20:21 Dose: 10 mg Documented By: KENISHA Omeprazole (Omeprazole 20 Mg Capsule.Dr) 20 mg PO BID@0630,1630 [facility] Last Admin: 05/19/23 05:56 Dose: 20 mg Documented By: KRISTI Ondansetron HCl (Ondansetron Hcl 4 Mg/2 Ml Vial) 4 mg IVPUSH Q8H PRN PRN Reason: Nausea and Vomiting Sodium Chloride (0.9 % Sodium Chloride Flush 3 Ml Syringe) 3 ml IVFLUSH QSHIFT [facility] Last Admin: 05/19/23 07:45 Dose: 3 ml Documented By: DAYANNA Vitamin D (Cholecalciferol (Vitamin D3) 25 Mcg Tablet) 50 mcg PO DAILY [facility] Last Admin: 05/19/23 07:45 Dose: 50 mcg Documented By: DAYANNA Labs 05/18/23 10:04 05/18/23 10:04 Labs: Laboratory Results - last 24 hr 05/18/23 20:56 Urine Color Yellow Urine Appearance Clear Urine pH 6.5 Ur Specific Aubrey 1.020 Urine Protein Negative Urine Glucose (UA) Negative Urine Ketones 15 Urine Blood Negative Urine Nitrite Negative Ur Leukocyte Esterase Negative Microbiology Microbiology Results: Microbiology 05/18/23 10:16 Blood Culture - Preliminary Blood - Venous No growth after 24 hours. 05/18/23 10:05 Blood Culture - Preliminary Blood - Venous No growth after 24 hours. Assessment and Plan (1) Pneumonia: Status: Acute (2) Hypoxia: Status: Acute (3) Acute exacerbation of chronic obstructive airways disease: Status: Acute Plan 66-year-old female with pertinent history of chronic hypoxemic respiratory failure secondary to COPD , essential hypertension, history of breast cancer status post mastectomy, history of lung cancer status post radiation who presents to the emergency department for evaluation of shortness of breath and wheezing. Acute on chronic hypoxemic respiratory failure secondary to Acute COPD exacerbation/multi lobar pneumonia Feeling a little better but still complaining of shortness of breath and congested cough, worse at night CTA chest showed no PE but showed diffuse centrilobular emphysema, right apical pleural base density question chronic scarring versus mass, right lower lobe opacity question mass versus infiltrate, peripheral right middle lobe and lingula pericardial opacity question infiltrate versus mass covid/flu/rsv negative Wean oxygen as tolerated on 2 L of home oxygen cont.iv ceftriaxone and azithromycin started on 05/18, IV steroids, scheduled and prn duonebs Supportive care with cough medication, at cough syrup with codeine at bedtime History of lung cancer being followed closely at [facility] with serial CT chest recommend close outpatient follow-up. Sepsis due to multilobar pneumonia Sepsis resolved. Mild hyponatremia likely due to pneumonia will follow bmp. Essential HTN Soft blood pressures will continue amlodipine and hold lisinopril follow blood pressure closely GERD on omeprazole, history of breast cancer Continue anastrozole, Rheumatoid arthritis hold hydroxychloroquine and home dose of prednisone DVT prophylaxis: Lovenox 40mg daily patient requires 2 night inpatient hospitalization for IV antibiotics, scheduled breathing treatments, IV steroids, close monitoring of oxygen saturation. Quality Stroke Does the patient have a stroke diagnosis?: No VTE Prior VTE?: No VTE Risk Level:: Medical - moderate - high VTE Device Contraindication: Treatment Not Indicated VTE Drug Contraindication: N/A - Med Ordered
[2023-05-19] MEDS: Azithromycin 500 MG in 0.9 % Sodium Chloride 250 ML 125 MG IV (14:31)
--- NOTE | 2023-05-19 15:04 | MHC.CLN ---
RE: CONSULT PT WITH POOR PO SET UP MOLD TECHNICIAN PO 25% X2 MEALS REVIEWED WTS 53.5KG (05/18/23) 58.967 (03/30/22) PT WITH 9% NONSIGNIFICANT WT LOSS X 1 YEAR DIET RX: REGULAR-APPROPRIATE PT WITH HX BREAST CA AND LUNG CA WITH INCREASED NUTRITION RISK RECOMMEND ADDING ENSURE BID AND MAGIC CUP WITH MEALS TO INCREASE [employer] MONITOR PO INTAKE AND ENCOURAGE SUPPLEMENTS
[2023-05-19] MEDS: Enoxaparin Sodium 40 MG/0.4 ML SYRINGE SUBCUT (16:52)
[2023-05-19] MEDS: Montelukast Sodium 10 MG TABLET PO (20:10)
[2023-05-19] MEDS: guaiFEN/Codeine SF 200/20/10ML 10 ML LIQUID PO (20:10)
[2023-05-19] MEDS: methylPREDNISolone Sod Succ 40 MG/ML VIAL 60 MG IVPUSH (20:10)
[2023-05-20] VITALS (8 sets, daily range): BP systolic 121–129; BP diastolic 61–75; PULSE 87–100; RESP 16–18; TEMP 36.2–36.3; O2SAT 92–95
[2023-05-20 05:47] LABS: Anion Gap 13 (12-20); Blood Urea Nitrogen 9 mg/dL (9-16); Calcium 8.8 mg/dL (8.4-10.2); Carbon Dioxide 25 mmol/L (22-29); Chloride 104 mmol/L (96-108); Creatinine Clr Calc Pharmacy 77.5; Estimated Glomerular Filt Rate > 60; Glucose Random 142 mg/dL (60-115); Potassium 3.8 mmol/L (3.3-5.1); Sodium 138 mmol/L (135-145)
[2023-05-20] MEDS: Omeprazole 20 MG CAPSULE.DR PO ×2 (06:22→17:09)
[2023-05-20] MEDS: methylPREDNISolone Sod Succ 40 MG/ML VIAL 60 MG IVPUSH ×2 (08:17→20:36)
[2023-05-20] MEDS: 0.9 % Sodium Chloride Flush 3 ML SYRINGE IVFLUSH ×2 (08:18→20:42)
[2023-05-20] MEDS: amLODIPine Besylate 5 MG TABLET PO (08:18)
[2023-05-20] MEDS: Cholecalciferol (Vitamin D3) 25 MCG TABLET 50 MCG PO (08:18)
[2023-05-20] MEDS: Albuterol/Iprat 2.5/0.5MG 3 ML AMPUL.NEB INHALE ×4 (09:06→20:06)
[2023-05-20] MEDS: Fluticasone/Vilanterol 100/25 BLST.W.DEV 1 PUFF INHALE (09:06)
[2023-05-20] MEDS: Anastrozole 1 MG TABLET PO (09:11)
[2023-05-20] MEDS: cefTRIAXone sodium 1 GM in 0.9 % Sodium Chloride 50 ML IV (11:52)
[2023-05-20] MEDS: guaiFENesin DM 100/10/5 ML 5 ML SYRUP 10 ML PO ×2 (12:02→20:35)
--- NOTE | 2023-05-20 13:15 | P.PNIM_ITS ---
Subjective Subjective Date of Service: 05/20/23 Interval History: Feeling better still short of breath with congested cough, slept well last night, no other acute issues overnight, denies fever, no chills, oxygenation 89- 90% on 2 L. Review of Systems All other system reviewed and negative. Physical Exam 2 Vital Signs: Vital Signs: Last Vital Signs Temp 97.1 F 05/20/23 07:46 Pulse 92 05/20/23 12:15 Resp 16 05/20/23 12:15 BP 126/74 05/20/23 07:46 Pulse Ox 92 05/20/23 07:46 O2 Del Method Nasal Cannula 05/20/23 07:46 O2 Flow Rate 3 05/20/23 07:46 Oxygen Flow Rate 3 05/18/23 09:44 BMI result Body Mass Index 19.6 Const: Other: General awake alert x3, in no acute distress. HEENT anicteric sclera Neck supple no JVD. CVS regular rate rhythm, Respiratory lungs few expiratory wheeze/rhonchi ,no use of accessory muscles ,no rales. Gastrointestinal abdomen soft, non tender, bowel sounds audible, no guarding , no rigidity. Extremities no edema. Neuro nonfocal Skin no rash Psych appropriate affect Objective Data Active Medications Acetaminophen (Acetaminophen 325 Mg Tablet) 650 mg PO Q6H PRN PRN Reason: Pain, Mild (Pain Scale 1-3) Albuterol Sulfate (Albuterol Sulfate 90 Mcg 8 Gm Inhaler) 2 puff INHALE Q4H PRN PRN Reason: Wheezing Albuterol/Ipratropium (Albuterol/Iprat 2.5/0.5mg 3 Ml Ampul.Neb) 3 ml INHALE RQ4H WHILE AWAKE [facility] Last Admin: 05/20/23 12:15 Dose: 3 ml Documented By: KARINE Amlodipine Besylate (Amlodipine Besylate 5 Mg Tablet) 5 mg PO DAILY [facility]; Protocol Last Admin: 05/20/23 08:18 Dose: 5 mg Documented By: LAURA Anastrozole (Anastrozole 1 Mg Tablet) 1 mg PO DAILY [facility] Last Admin: 05/20/23 09:11 Dose: 1 mg Documented By: LAURA Benzonatate (Benzonatate 100 Mg Capsule) 100 mg PO TID PRN PRN Reason: Cough Docusate Sodium (Docusate Sodium 100 Mg Capsule) 100 mg PO DAILY PRN PRN Reason: Constipation Enoxaparin Sodium (Enoxaparin Sodium 40 Mg/0.4 Ml Syringe) 40 mg SUBCUT Q24H [facility] Last Admin: 05/19/23 16:52 Dose: 40 mg Documented By: DAYANNA Fluticasone/Vilanterol (Fluticasone/Vilanterol 100/25 Blst.W.Dev) 1 puff INHALE RDAILY [facility] Last Admin: 05/20/23 09:06 Dose: 1 puff Documented By: KARINE Guaifenesin/Codeine Phosphate (Guaifen/Codeine Sf 200/20/10ml 10 Ml Liquid) 10 ml PO BEDTIME [facility] Last Admin: 05/19/23 20:10 Dose: 10 ml Documented By: YELITZA Guaifenesin/Dextromethorphan (Guaifenesin Dm 100/10/5 Ml 5 Ml Syrup) 10 ml PO TID [facility] Last Admin: 05/20/23 12:02 Dose: 10 ml Documented By: LAURA Comments: med was not available this AM Ceftriaxone Sodium 1 gm/ (Sodium Chloride) 50 mls @ 100 mls/hr IV Q24H [facility] Last Infusion: 05/20/23 12:31 Dose: Infused Documented By: LAURA Azithromycin 500 mg/ Sodium (Chloride) 250 mls @ 125 mls/hr IV Q24H [facility] Last Infusion: 05/19/23 16:54 Dose: Infused Documented By: DAYANNA Melatonin (Melatonin 3 Mg Tablet) 3 mg PO BEDTIME PRN PRN Reason: Insomnia Methylprednisolone Sodium Succinate (Methylprednisolone Sod Succ 40 Mg/Ml Vial) 60 mg IVPUSH Q12H [facility] Last Admin: 05/20/23 08:17 Dose: 60 mg Documented By: LAURA Montelukast Sodium (Montelukast Sodium 10 Mg Tablet) 10 mg PO BEDTIME [facility] Last Admin: 05/19/23 20:10 Dose: 10 mg Documented By: YELITZA Omeprazole (Omeprazole 20 Mg Capsule.) 20 mg PO BID@0630,1630 [facility] Last Admin: 05/20/23 06:22 Dose: 20 mg Documented By: YELITZA Ondansetron HCl (Ondansetron Hcl 4 Mg/2 Ml Vial) 4 mg IVPUSH Q8H PRN PRN Reason: Nausea and Vomiting Sodium Chloride (0.9 % Sodium Chloride Flush 3 Ml Syringe) 3 ml IVFLUSH QSHIFT [facility] Last Admin: 05/20/23 08:18 Dose: 3 ml Documented By: LAURA Vitamin D (Cholecalciferol (Vitamin D3) 25 Mcg Tablet) 50 mcg PO DAILY [facility] Last Admin: 05/20/23 08:18 Dose: 50 mcg Documented By: LAURA Labs 05/18/23 10:04 05/20/23 05:16 Labs: Laboratory Results - last 24 hr 05/20/23 05:16 Hold Purple Top SEE NOTE Anion Gap 13 Estim Creat Clear Calc 77.5 Estimated GFR > 60 Random Glucose 142 H Calcium 8.8 D Microbiology Microbiology Results: Microbiology 05/18/23 10:16 Blood Culture - Preliminary Blood - Venous No growth after 48 hours. 05/18/23 10:05 Blood Culture - Preliminary Blood - Venous No growth after 48 hours. Assessment and Plan (1) Pneumonia: Status: Acute (2) Hypoxia: Status: Acute (3) Acute exacerbation of chronic obstructive airways disease: Status: Acute Plan 66-year-old female with pertinent history of chronic hypoxemic respiratory failure secondary to COPD , essential hypertension, history of breast cancer status post mastectomy, history of lung cancer status post radiation who presents to the emergency department for evaluation of shortness of breath and wheezing. Acute on chronic hypoxemic respiratory failure secondary to Acute COPD exacerbation/multi lobar pneumonia Slowly improving, still complaining of shortness of breath and congested cough CTA chest showed no PE but showed diffuse centrilobular emphysema, right apical pleural base density question chronic scarring versus mass, right lower lobe opacity question mass versus infiltrate, peripheral right middle lobe and lingula pericardial opacity question infiltrate versus mass covid/flu/rsv negative Wean oxygen as tolerated on 2 L of home oxygen cont.iv ceftriaxone and azithromycin started on 05/18, IV steroids for 1 more day, scheduled and prn duonebs Continue cough medication tid , and cough syrup with codeine at bedtime History of lung cancer being followed closely at [facility] with serial CT chest recommend close outpatient follow-up. Sepsis due to multilobar pneumonia Sepsis resolved. Mild hyponatremia likely due to pneumonia resolved Essential HTN BP stable on amlodipine continue to hold lisinopril GERD on omeprazole, history of breast cancer Continue anastrozole, Rheumatoid arthritis hold hydroxychloroquine and home dose of prednisone DVT prophylaxis: Lovenox 40mg daily patient requires continued inpatient hospitalization for IV antibiotics, scheduled breathing treatments, IV steroids, close monitoring of oxygen saturation. Quality Stroke Does the patient have a stroke diagnosis?: No VTE Prior VTE?: No VTE Risk Level:: Medical - moderate - high VTE Device Contraindication: Treatment Not Indicated VTE Drug Contraindication: N/A - Med Ordered
[2023-05-20] MEDS: Azithromycin 500 MG in 0.9 % Sodium Chloride 250 ML 125 MG IV (14:05)
[2023-05-20] MEDS: Enoxaparin Sodium 40 MG/0.4 ML SYRINGE SUBCUT (17:09)
--- NOTE | 2023-05-20 18:27 | PC.NURSE ---
MD Cedeno made aware pt saturating 89-90% on 2L NC when attempted to wean down supplemental o2, per MD titrate back up to 3L. Pt saturating 92% on 3 L NC, no SOB noted, LS wheezy throughout and dim in bases.
[2023-05-20] MEDS: guaiFEN/Codeine SF 200/20/10ML 10 ML LIQUID PO (20:35)
[2023-05-20] MEDS: Montelukast Sodium 10 MG TABLET PO (20:36)
[2023-05-21] VITALS (8 sets, daily range): BP systolic 130–139; BP diastolic 66–83; PULSE 84–98; RESP 15–19; TEMP 36.1–37.1; O2SAT 93–97
[2023-05-21] MEDS: Omeprazole 20 MG CAPSULE.DR PO ×2 (05:17→16:51)
[2023-05-21] MEDS: Cholecalciferol (Vitamin D3) 25 MCG TABLET 50 MCG PO (07:24)
[2023-05-21] MEDS: guaiFENesin DM 100/10/5 ML 5 ML SYRUP 10 ML PO ×3 (07:24→20:55)
[2023-05-21] MEDS: Anastrozole 1 MG TABLET PO (07:24)
[2023-05-21] MEDS: methylPREDNISolone Sod Succ 40 MG/ML VIAL 60 MG IVPUSH (07:25)
[2023-05-21] MEDS: amLODIPine Besylate 5 MG TABLET PO (07:25)
[2023-05-21] MEDS: 0.9 % Sodium Chloride Flush 3 ML SYRINGE IVFLUSH ×2 (07:27→20:55)
[2023-05-21] MEDS: Albuterol/Iprat 2.5/0.5MG 3 ML AMPUL.NEB INHALE ×3 (09:00→19:22)
[2023-05-21] MEDS: Fluticasone/Vilanterol 100/25 BLST.W.DEV 1 PUFF INHALE (09:01)
[2023-05-21] MEDS: cefTRIAXone sodium 1 GM in 0.9 % Sodium Chloride 50 ML IV (10:51)
--- NOTE | 2023-05-21 13:20 | HO.PM.IMPN ---
Subjective Subjective Date of Service: 05/21/23 Interval History: Feeling better this morning denies shortness of breath at rest, cough is improving but had shortness of breath with ambulation noted to have persistent bilateral expiratory wheeze, no fevers, no chills tolerating diet. Review of Systems All other system reviewed and negative. Physical Exam Vital Signs: Vital Signs: Last Vital Signs Temp 98 F 05/21/23 07:00 Pulse 92 05/21/23 09:01 Resp 16 05/21/23 09:01 BP 134/81 05/21/23 07:00 Pulse Ox 93 05/21/23 07:14 O2 Del Method Nasal Cannula 05/21/23 07:14 O2 Flow Rate 2 05/21/23 07:14 Oxygen Flow Rate 3 05/18/23 09:44 BMI result Body Mass Index 19.6 Const: Other: General awake alert x3, in no acute distress. HEENT anicteric sclera Neck supple no JVD. CVS regular rate rhythm, Respiratory lungs expiratory wheeze ,no use of accessory muscles ,no rales. Gastrointestinal abdomen soft, non tender, bowel sounds audible, no guarding , no rigidity. Extremities no edema. Neuro non focal Skin no rash Psych appropriate affect Objective Data Active Medications Acetaminophen (Acetaminophen 325 Mg Tablet) 650 mg PO Q6H PRN PRN Reason: Pain, Mild (Pain Scale 1-3) Albuterol Sulfate (Albuterol Sulfate 90 Mcg 8 Gm Inhaler) 2 puff INHALE Q4H PRN PRN Reason: Wheezing Albuterol/Ipratropium (Albuterol/Iprat 2.5/0.5mg 3 Ml Ampul.Neb) 3 ml INHALE RQ4H WHILE AWAKE [facility] Last Admin: 05/21/23 12:25 Dose: Not Given Documented By: KARINE Non-Admin Reason: Patient Refused Amlodipine Besylate (Amlodipine Besylate 5 Mg Tablet) 5 mg PO DAILY [facility]; Protocol Last Admin: 05/21/23 07:25 Dose: 5 mg Documented By: LAURA Anastrozole (Anastrozole 1 Mg Tablet) 1 mg PO DAILY [facility] Last Admin: 05/21/23 07:24 Dose: 1 mg Documented By: LAURA Benzonatate (Benzonatate 100 Mg Capsule) 100 mg PO TID PRN PRN Reason: Cough Docusate Sodium (Docusate Sodium 100 Mg Capsule) 100 mg PO DAILY PRN PRN Reason: Constipation Enoxaparin Sodium (Enoxaparin Sodium 40 Mg/0.4 Ml Syringe) 40 mg SUBCUT Q24H [facility] Last Admin: 05/20/23 17:09 Dose: 40 mg Documented By: LAURA Fluticasone/Vilanterol (Fluticasone/Vilanterol 100/25 Blst.W.Dev) 1 puff INHALE RDAILY [facility] Last Admin: 05/21/23 09:01 Dose: 1 puff Documented By: KARINE Guaifenesin/Codeine Phosphate (Guaifen/Codeine Sf 200/20/10ml 10 Ml Liquid) 10 ml PO BEDTIME [facility] Last Admin: 05/20/23 20:35 Dose: 10 ml Documented By: YELITZA Guaifenesin/Dextromethorphan (Guaifenesin Dm 100/10/5 Ml 5 Ml Syrup) 10 ml PO TID [facility] Last Admin: 05/21/23 07:24 Dose: 10 ml Documented By: LAURA Ceftriaxone Sodium 1 gm/ (Sodium Chloride) 50 mls @ 100 mls/hr IV Q24H [facility] Last Infusion: 05/21/23 11:21 Dose: Infused Documented By: LAURA Azithromycin 500 mg/ Sodium (Chloride) 250 mls @ 125 mls/hr IV Q24H [facility] Last Infusion: 05/20/23 16:14 Dose: Infused Documented By: LAURA Melatonin (Melatonin 3 Mg Tablet) 3 mg PO BEDTIME PRN PRN Reason: Insomnia Methylprednisolone Sodium Succinate (Methylprednisolone Sod Succ 40 Mg/Ml Vial) 60 mg IVPUSH Q12H [facility] Last Admin: 05/21/23 07:25 Dose: 60 mg Documented By: LAURA Montelukast Sodium (Montelukast Sodium 10 Mg Tablet) 10 mg PO BEDTIME [facility] Last Admin: 05/20/23 20:36 Dose: 10 mg Documented By: YELITZA Omeprazole (Omeprazole 20 Mg Capsule.) 20 mg PO BID@0630,1630 [facility] Last Admin: 05/21/23 05:17 Dose: 20 mg Documented By: YELITZA Ondansetron HCl (Ondansetron Hcl 4 Mg/2 Ml Vial) 4 mg IVPUSH Q8H PRN PRN Reason: Nausea and Vomiting Sodium Chloride (0.9 % Sodium Chloride Flush 3 Ml Syringe) 3 ml IVFLUSH QSHIFT [facility] Last Admin: 05/21/23 07:27 Dose: 3 ml Documented By: LAURA Vitamin D (Cholecalciferol (Vitamin D3) 25 Mcg Tablet) 50 mcg PO DAILY [facility] Last Admin: 05/21/23 07:24 Dose: 50 mcg Documented By: LAURA Labs 05/18/23 10:04 05/20/23 05:16 Microbiology Microbiology Results: Microbiology 05/18/23 10:16 Blood Culture - Preliminary Blood - Venous No growth after 48 hours. 05/18/23 10:05 Blood Culture - Preliminary Blood - Venous No growth after 48 hours. Assessment and Plan (1) Pneumonia: Status: Acute (2) Hypoxia: Status: Acute (3) Acute exacerbation of chronic obstructive airways disease: Status: Acute Plan 66-year-old female with pertinent history of chronic hypoxemic respiratory failure secondary to COPD , essential hypertension, history of breast cancer status post mastectomy, history of lung cancer status post radiation who presents to the emergency department for evaluation of shortness of breath and wheezing. Acute on chronic hypoxemic respiratory failure secondary to Acute COPD exacerbation/multi lobar pneumonia Slowly improving, persistent shortness of breath with exertion CTA chest showed no PE but showed diffuse centrilobular emphysema, right apical pleural base density question chronic scarring versus mass, right lower lobe opacity question mass versus infiltrate, peripheral right middle lobe and lingula pericardial opacity question infiltrate versus mass covid/flu/rsv negative Wean oxygen as tolerated to 2 L of home oxygen cont.iv ceftriaxone and azithromycin day 4/5 on IV steroids will transition to po prednisone, cont. scheduled and prn duonebs Encourage ambulation Continue cough medication tid , and cough syrup with codeine at bedtime History of lung cancer being followed closely at [facility] with serial CT chest recommend close outpatient follow-up. Sepsis due to multilobar pneumonia Sepsis resolved. Mild hyponatremia likely due to pneumonia resolved Essential HTN BP stable on amlodipine , will DC lisinopril upon discharge GERD on omeprazole, history of breast cancer Continue anastrozole, Rheumatoid arthritis hold hydroxychloroquine and hold home dose of prednisone, resume up to prednisone taper DVT prophylaxis: Lovenox 40mg daily patient requires continued inpatient hospitalization for IV antibiotics, scheduled breathing treatments, IV steroids, close monitoring of oxygen saturation. Quality Stroke Does the patient have a stroke diagnosis?: No VTE Prior VTE?: No VTE Risk Level:: Medical - moderate - high VTE Device Contraindication: Treatment Not Indicated VTE Drug Contraindication: N/A - Med Ordered
[2023-05-21] MEDS: Azithromycin 500 MG in 0.9 % Sodium Chloride 250 ML 125 MG IV (14:17)
[2023-05-21] MEDS: Enoxaparin Sodium 40 MG/0.4 ML SYRINGE SUBCUT (16:51)
[2023-05-21] MEDS: predniSONE 20 MG TABLET PO (16:51)
[2023-05-21] MEDS: Montelukast Sodium 10 MG TABLET PO (20:54)
[2023-05-21] MEDS: guaiFEN/Codeine SF 200/20/10ML 10 ML LIQUID PO (20:55)
[2023-05-22 03:29] VITALS: BP 119/63; PULSE 80; RESP 17; TEMP 36.3; O2SAT 96
[2023-05-22] MEDS: Omeprazole 20 MG CAPSULE.DR PO (06:15)
[2023-05-22 07:40] VITALS: BP 136/90; PULSE 89; RESP 16; TEMP 36; O2SAT 93
[2023-05-22] MEDS: amLODIPine Besylate 5 MG TABLET PO (08:17)
[2023-05-22] MEDS: guaiFENesin DM 100/10/5 ML 5 ML SYRUP 10 ML PO (08:17)
[2023-05-22] MEDS: 0.9 % Sodium Chloride Flush 3 ML SYRINGE IVFLUSH (08:17)
[2023-05-22] MEDS: predniSONE 20 MG TABLET PO (08:17)
[2023-05-22] MEDS: Cholecalciferol (Vitamin D3) 25 MCG TABLET 50 MCG PO (08:17)
[2023-05-22] MEDS: Anastrozole 1 MG TABLET PO (08:17)
[2023-05-22] MEDS: Fluticasone/Vilanterol 100/25 BLST.W.DEV 1 PUFF INHALE (09:16)
[2023-05-22 09:17] VITALS: PULSE 84; RESP 16; O2SAT 95
[2023-05-22] MEDS: Albuterol/Iprat 2.5/0.5MG 3 ML AMPUL.NEB INHALE ×2 (09:17→12:27)
--- NOTE | 2023-05-22 11:17 | P.F2F_ITS ---
Service Date Service Date: 05/22/23 Encounter Date of encounter: 05/22/23 Reasons for Services Signs and symptoms assessed: dyspnea balance/gait/strength Reason for senior living: medication management, medication treatment and teach disease management Reason for physical therapy: home safety and mobility, therapeutic exercises, gait/transfer training, assess need for DME, ADL training and energy conservation MD Overseeing Care: Branden Culp Homebound: Leaving the home is medically contraindicated at this time without the asist of a device and/or another person due th the listed conditions above and below. Reason homebound: immunosuppression / infection risk and weakness related to hospital stay Certification: Based on the above findings, I certify that this patient is confined to the home and needs intermittent senior living care, physical therapy and/or speech therapy, or continues to need occupational therapy. The patient is under my care, and I have initiated the establishment of the plan of care. The patient will be followed by a physician who will periodically review the plan of care. Time Spent With Patient Time: Total time managing care of this patient today ____ minutes.
--- NOTE | 2023-05-22 11:28 | PM.DS ---
DS: Providers Provider Date of Service: 05/22/23 Date of admission: 05/18/23 16:16 Date of discharge: 05/22/23 Primary care physician: Branden Culp MD DS: Diagnosis Discharge Diagnosis (1) Pneumonia: Status: Acute (2) Acute exacerbation of chronic obstructive airways disease: Status: Acute (3) Acute and chronic respiratory failure with hypoxia: Status: Resolved (4) Lesion of lung: Status: Acute (5) Lung cancer: Status: Acute (6) Sepsis: Status: Acute DS: Summary Hospital Course Hospital Course: From the history and physical by the admitting hospitalist, Adrian Cedeno MD, 05/18/23: 68-year-old female patient with past medical history of breast cancer status post mastectomy, lung cancer status post radiation being followed at [facility] is on 2 L of home oxygen patient presented to [place] ER with 1 week history of shortness of breath, dry cough, no fevers, no chills, no recent history of travel, no sick contacts patient has been using her updraft treatment without any benefit since today she became more lightheaded, felt weak and had a temperature of 100.7 degrees therefore came to the emergency room in the ER patient was noted to have shortness of breath, hypoxia chest x-ray suggestive of bilateral pneumonia therefore being admitted to [facility]. 68yo F with chronic hypoxic respiratory failure on 2L home O2, COPD, hx lung CA s/p XRT, hx breast CA s/p mastectomy, and HTN. Presented with dyspnea and wheezing and found to be hypoxic and septic due to COPD/multilobar pneumonia, for which she was admitted to the hospitalist service. Covid-19/influenza/RSV testing was negative. She was treated with oxygen, IV ceftriaxone, IV azithromycin, and IV steroids. Blood cultures resulted negative. She improved and was weaned to 2L home oxygen. She was discharged on a prednisone taper to gradually return to her usual dose of 5 mg daily, along with 4 days of PO cefdinir plus doxycycline. She should follow up with [facility] regarding lesions on her lung given her cancer history (CTA chest showed diffuse centrilobular emphysema, right apical pleural base density question chronic scarring versus mass, right lower lobe opacity question mass versus infiltrate, peripheral right middle lobe and lingula pericardial opacity question infiltrate versus mass). She was discharged home with VNA services. Time Attestation Total time managing care of this patient today: 35 mintues. Discharge coordination time: Greater than 30 minutes Quality: Safe Use of Opioids Does Pt have an Active Cancer Diagnosis on the Problem List?: Yes Opioid Measure Date for [facility] Report: 04/22/23 Opioid Measure Time for [facility] Report: 11:32 Quality: Stroke Does the patient have a stroke diagnosis?: No Physical Exam Vital Signs: Vital Signs: Last Vital Signs Temp 96.8 F 05/22/23 07:40 Pulse 84 05/22/23 09:17 Resp 16 05/22/23 09:17 BP 136/90 H 05/22/23 07:40 Pulse Ox 93 05/22/23 07:40 O2 Del Method Nasal Cannula 05/22/23 07:40 O2 Flow Rate 2 05/22/23 07:40 Oxygen Flow Rate 3 05/18/23 09:44 BMI result Body Mass Index 19.6 Gen: in no acute distress HEENT: sclera anicteric, moist mucus membranes Neck: supple Lungs: clear bilaterally Heart: regular rate and rhythm, no murmurs Abd: soft, non-tender, non-distended Ext: no edema Skin: warm/well-perfused Neuro: alert and oriented x3, no focal findings Psych: appropriate affect DS: Data Data Completed and Pending Completed studies during hospitalization [Text1]: Laboratory Results WBC 8.1 X10*3/uL (4.8-10.8) 05/18/23 10:04 RBC 5.39 X10*6/uL (4.20-5.50) 05/18/23 10:04 Hgb 15.3 g/dl (12.0-16.0) 05/18/23 10:04 Hct 45.8 % (37.0-47.0) 05/18/23 10:04 MCV 85.0 fL (80.0-98.0) 05/18/23 10:04 MCH 28.4 pg (27.0-33.0) 05/18/23 10:04 MCHC 33.4 g/dl (31.0-35.0) 05/18/23 10:04 RDW 12.3 % (11.0-16.0) 05/18/23 10:04 Plt Count 334 X10*3/uL (160-400) 05/18/23 10:04 MPV 11.2 fL (9.4-12.3) 05/18/23 10:04 Immature Gran % (Auto) 0.6 % (0.0-0.4) H 05/18/23 10:04 Neut % (Auto) 76.5 % (45-73) H 05/18/23 10:04 Lymph % (Auto) 9.9 % (20-40) L 05/18/23 10:04 [place] % (Auto) 11.3 % (2-11) H 05/18/23 10:04 Eos % (Auto) 0.7 % (0-4) 05/18/23 10:04 Baso % (Auto) 1.0 % (0-2) 05/18/23 10:04 Lymph # (Auto) 0.8 X10*3/uL (1.2-4.9) L 05/18/23 10:04 [place] # (Auto) 0.9 X10*3/uL (0.1-1.2) 05/18/23 10:04 Eos # (Auto) 0.1 X10*3/uL (0.0-0.4) 05/18/23 10:04 Baso # (Auto) 0.1 X10*3/uL (0.0-0.2) 05/18/23 10:04 Abs Immat Gran (auto) 0.05 X10*3/uL (0.00-0.03) H 05/18/23 10:04 Absolute Neuts (auto) 6.2 x10*3/uL (2.0-8.3) 05/18/23 10:04 Absolute Nucleated RBC 0.000 X10*3/uL (0.0-0.012) 05/18/23 10:04 Nucleated RBC % (auto) 0.0 /100WBC (0.0-0.2) 05/18/23 10:04 Hold Purple Top SEE NOTE 05/20/23 05:16 VBG pH 7.47 (7.32-7.43) H 05/18/23 10:18 VBG pCO2 40 mmHg 05/18/23 10:18 VBG pO2 41 mmHg 05/18/23 10:18 VBG HCO3 29 mmol/L (22-26) H 05/18/23 10:18 VBG O2 Saturation 73.0 % 05/18/23 10:18 VBG Base Excess 5.6 mmol/L 05/18/23 10:18 Sodium 138 mmol/L (135-145) 05/20/23 05:16 Potassium 3.8 mmol/L (3.3-5.1) 05/20/23 05:16 Chloride 104 mmol/L (96-108) 05/20/23 05:16 Carbon Dioxide 25 mmol/L (22-29) 05/20/23 05:16 Anion Gap 13 (12-20) 05/20/23 05:16 BUN 9 mg/dL (9-16) 05/20/23 05:16 Creatinine 0.57 mg/dL (0.5-1.4) 05/20/23 05:16 Estim Creat Clear Calc 77.5 05/20/23 05:16 Estimated GFR > 60 05/20/23 05:16 Random Glucose 142 mg/dL (60-115) H 05/20/23 05:16 Lactic Acid 1.0 mmol/L (0.5-2.0) 05/18/23 10:04 Calcium 8.8 mg/dL (8.4-10.2) D 05/20/23 05:16 Magnesium 1.7 mg/dL (1.6-2.6) 05/18/23 10:04 Total Bilirubin 0.3 mg/dL (0.0-1.0) 05/18/23 10:04 Direct Bilirubin 0.1 mg/dL (0.0-0.5) 05/18/23 10:04 AST 22 U/L (5-31) 05/18/23 10:04 ALT 16 U/L (0-31) 05/18/23 10:04 Alkaline Phosphatase 75 U/L (39-117) 05/18/23 10:04 Troponin I High Sens < 2.7 ng/L (<3.5-17.0) 05/18/23 10:04 B-Natriuretic Peptide 27 pg/mL (<100) 05/18/23 10:04 Total Protein 7.3 g/dL (6.5-8.0) 05/18/23 10:04 Albumin 4.0 g/dL (3.5-5.0) 05/18/23 10:04 Lipase 18 U/L (8-78) 05/18/23 10:04 Procalcitonin 0.03 ng/mL 05/18/23 10:04 Urine Color Yellow 05/18/23 20:56 Urine Appearance Clear 05/18/23 20:56 Urine pH 6.5 (5.0-9.0) 05/18/23 20:56 Ur Specific [place] 1.020 (1.005-1.025) 05/18/23 20:56 Urine Protein Negative mg/dL (Neg-Trace) 05/18/23 20:56 Urine Glucose (UA) Negative mg/dL (Negative) 05/18/23 20:56 Urine Ketones 15 mg/dL (Negative) 05/18/23 20:56 Urine Blood Negative (Negative) 05/18/23 20:56 Urine Nitrite Negative (Negative) 05/18/23 20:56 Ur Leukocyte Esterase Negative (Negative) 05/18/23 20:56 Influenza Type A (PCR) NEGATIVE (Negative) 05/18/23 10:16 Influenza Type B (PCR) NEGATIVE (Negative) 05/18/23 10:16 RSV RNA Qual (PCR) NEGATIVE (Negative) 05/18/23 10:16 SARS-CoV-2 RNA (RT-PCR) NEGATIVE (Negative) 05/18/23 10:16 Impressions Chest X-Ray 05/18/23 10:10 IMPRESSION: 1. Changes suggestive of underlying COPD. 2. Mild progression of irregular pulmonary opacities in the right lung apex and right lung base compared to 2022. Findings are nonspecific and may represent a developing infectious/inflammatory process in the appropriate clinical setting. However, follow-up chest CT would better characterize any potential underlying lesions. Chest CTA 05/18/23 12:42 IMPRESSION: 1. No evidence of PE. 2. No evidence aortic dissection or aneurysm. 3. Diffuse centrilobular emphysema with right apical pleural-based mass with contiguous spiculated density in the right upper lobe question chronic scarring versus mass. There is parenchymal opacity right lower lobe with extension to the right medial basilar pleura, question mass versus infiltrate. 4. Peripheral right middle lobe and lingular parenchymal opacity question infiltrate versus mass 5. There is abnormal precarinal and subcarinal lymphadenopathy. 6. VTE: negative. 7. Recommend correlation with outside CT chest if available Discharge Plan Discharge Anticipated Discharge Date/Time: 05/22/23 14:08 Patient Disposition: Home Health Service Discharge Diagnosis: acute/chronic hypoxic respiratory failure COPD exacerbation multifocal pneumonia history of lung cancer Referrals: Branden Culp MD [Primary Care Provider] - 1 Week Discharge Medications: New prednisone 10 mg tablet See Rx Instructions .ROUTE .COMPLEX Qty: 40 0RF Rx Instructions: 40 mg daily x 4 days, then 30 mg daily x 4 days, then 20 mg daily x 4 days, then 10 mg daily x 4 days, then resume prior dose of 5 mg daily cefdinir 300 mg capsule 300 mg PO BID Qty: 8 0RF doxycycline monohydrate 100 mg tablet 100 mg PO BID Qty: 8 0RF Continued anastrozole 1 mg tablet 1 tab PO DAILY ipratropium-albuterol 0.5 mg-3 mg(2.5 mg base)/3 mL solution for nebulization 3 ml inhalation QID lisinopril 20 mg tablet 1 tab PO DAILY amlodipine 5 mg tablet 1 tab PO DAILY omeprazole 20 mg capsule,delayed release(DR/EC) 1 cap PO BID montelukast 10 mg tablet 1 tab PO BEDTIME Spiriva Respimat 2.5 mcg/actuation mist 2 puff INHALATION DAILY albuterol sulfate [ProAir HFA] 90 mcg/actuation Hfa Aerosol Inhaler 2 puff INHALATION Q4-6H PRN (Reason: Wheezing) budesonide-formoterol [Symbicort] 80-4.5 mcg/actuation Hfa Aerosol Inhaler 1 inh INHALATION BID cholecalciferol (vitamin D3) [Vitamin D3] 50 mcg (2,000 unit) Capsule 50 mcg PO DAILY hydroxychloroquine 200 mg tablet 200 mg PO BID azithromycin 500 mg tablet 500 mg PO MOWEFR@0900 Held prednisone 5 mg tablet 5 mg PO DAILY Hold Instructions: Resume on 06/07/23. Discharge Orders: Discharge Order (Routine); Ordered 05/22/23 Ordered By: Rebecca Zamora Diet: Advance to usual diet Activity on Discharge: As tolerated Stand Alone Forms: Patient Portal Discharge page Care Plan Goals: pulmonary health Health Concerns: acute/chronic hypoxic respiratory failure COPD exacerbation multifocal pneumonia history of lung cancer Plan of Treatment: prednisone 10 mg tabs, taper as follows: 40 mg (4 tabs) daily x 4 days, then 30 mg (3 tabs) daily x 4 days, then 20 mg (2 tabs) daily x 4 days, then 10 mg (1 tab) daily x 4 days, then resume prior dose of 5 mg daily antibiotics for 4 days: cefdinir 300 mg twice daily doxycycline 100 mg twice daily Please follow up with your primary care doctor within 1 week. Return to the hospital if you experience recurrent or worsening symptoms. Also follow up with your oncologist at [facility] this month for follow-up. Assessment: See Discharge Summary.
[2023-05-22 12:27] VITALS: PULSE 84; RESP 16; O2SAT 94
--- NOTE | 2023-05-22 14:09 | MHC.CM.PN ---
pt dcd today multiple referrals sent [facility] unable to accept pts ins referral to [facility] will confirm tomorrow as no response in allscripts to confirm theyn have accepted pt
--- NOTE | 2023-05-23 08:49 | MHC.CM.PN ---
notified by [facility] this morning that they jhave accepted pt and will see 05/23
== END 2023-05-22 14:36 | disposition home health service (06) | DRG 193 ==
LOC: HO.ED 14:39 → HO.EDOVER 16:32 → HO.S3 17:15
PROVIDERS: Admitting Provider Hospitalist; Emergency Provider Emergency Medicine; PCP Internal Medicine; Visit Provider Family Medicine
DX: J18.9 Pneumonia, unspecified organism (principal); J96.21 Acute and chronic respiratory failure with hypoxia; E87.1 Hypo-osmolality and hyponatremia; R91.8 Other nonspecific abnormal finding of lung field; J43.2 Centrilobular emphysema; I10 Essential (primary) hypertension; K21.9 Gastro-esophageal reflux disease without esophagitis; M06.9 Rheumatoid arthritis, unspecified; C50.919 Malignant neoplasm of unspecified site of unspecified female breast; Z20.822 Contact with and (suspected) exposure to COVID-19; Z85.118 Personal history of other malignant neoplasm of bronchus and lung; Z99.81 Dependence on supplemental oxygen; Z87.891 Personal history of nicotine dependence; Z79.811 Long term (current) use of aromatase inhibitors; Z79.52 Long term (current) use of systemic steroids; Z79.899 Other long term (current) drug therapy
CPT/HCPCS: 0241U; 36415; 71045; 71275; 80048; 80076; 81003; 82803; 83605; 83690; 83735; 83880; 84145; 84484; 85025; 87040; 93005; 94640; 99285; J0456; J0696; J1650; J2920; J2930; Q9967

== ENCOUNTER → 2023-05-18 09:51 | Outpatient (BNV) | payer MEDICARE, SELFPAY | PROVIDERS: Emergency Provider Emergency Medicine; PCP Internal Medicine; Visit Provider Internal Medicine | DX: R00.0 Tachycardia, unspecified (principal); R06.09 Other forms of dyspnea | CPT/HCPCS: 93010 ==

== ENCOUNTER → 2023-05-18 16:16 | Outpatient (BNV) | payer MEDICARE, SELFPAY | PROVIDERS: Admitting Provider Hospitalist; Emergency Provider Emergency Medicine; PCP Internal Medicine; Visit Provider Hospitalist | DX: J44.1 Chronic obstructive pulmonary disease with (acute) exacerbation (principal); J96.21 Acute and chronic respiratory failure with hypoxia; J18.9 Pneumonia, unspecified organism; R91.1 Solitary pulmonary nodule; C34.90 Malignant neoplasm of unspecified part of unspecified bronchus or lung; A41.9 Sepsis, unspecified organism | CPT/HCPCS: 99223; 99232; 99233; 99239; G0180 ==